=== PATIENT | female | born 1955 | race Caucasian/White ===

== ENCOUNTER 2023-10-03 11:29 | Outpatient (AMB) | payer MEDICARE, SELFPAY ==
--- NOTE | 2023-10-03 12:04 | AM.OFFWIN_ITS ---
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 Rates pain a 7. 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 Patient is complaining of low back me that got worse over the last week. She has history of low back pain, MRIs showing a slipped disc. Symptoms had improved with physical therapy. Without any particular aggravation, the pain symptoms worsened. No urinary incontinence. Able to function and do activities of daily living. PFSH Social History Patient Tobacco Use Status: Never used Tobacco Physical Exam Vital Signs: Last Vital Signs Temp 98.6 F 10/03/23 12:08 Pulse 72 10/03/23 12:08 BP 122/80 10/03/23 12:08 Pulse Ox 99 10/03/23 12:08 Oxygen Delivery Method Room Air 10/03/23 12:08 BMI result Body Mass Index 0.3 Back/Spine/Pelvis Other: Spine: No spinal tenderness. Extrem Other: Right hip: Full range of motion. Full range of motion at the right knee. Assessment & Plan Assessment & Plan (1) Low back pain: Code(s): M54.50 - Low back pain, unspecified Plan: Meloxicam and cyclobenzaprine called in. . Patient was advised rest. Note for work if necessary provided. Once pain symptoms subside, patient should start physical therapy. If symptoms worsen to follow-up here. If patient needs testing, she was advised to follow-up with her primary care provider. Coding Level of Care Code Est Pt Level 4 (18306) Diagnoses Low back pain M54.50
[2023-10-03 12:08] VITALS: BP 122/80; PULSE 72; TEMP 37; O2SAT 99
== END 2023-10-03 13:15 | disposition home or self-care (01) ==
PROVIDERS: PCP Internal Medicine; Visit Provider Internal Medicine
DX: M54.50 Low back pain, unspecified (principal)
CPT/HCPCS: 99214

== ENCOUNTER 2023-10-17 07:59 | Outpatient (AMB) | payer MEDICARE, SELFPAY ==
[2023-10-17 08:03] VITALS: BP 110/70; PULSE 67; O2SAT 99; BMI 28.3
--- NOTE | 2023-10-17 08:03 | A.OFFPC_ITS ---
Vital Signs 10/17/23 08:03 Height 5 ft 4 in Weight 165 lb BMI 28.3 BP 110/70 Blood Pressure Location Rt brachial Position Sitting Pulse 67 Pulse Source Pulse Oximeter Pulse Oximetry (%) 99 Oxygen Delivery Method Room Air Intake Visit Reasons: est care/ sciatic nerve pain Intake Note: Pt is here today as a New Patient c/o Rt leg sciatic nerve pain Allergies No Known Allergies Allergy (Verified 10/17/23 08:24) Medication List - Last Reconciled 10/17/23 by KELSI Ventura alendronate 70 mg PO QWEEK fluticasone propionate 50 mcg/actuation sprays intranasal gabapentin 300 mg PO DAILY levothyroxine 75 mcg PO DAILY rosuvastatin 5 mg PO DAILY zolpidem 5 mg PO BEDTIME Tobacco use date assessed: 10/17/23 Fall risk assessment: No Falls in past year Last assessed Fall Risk: 10/17/23 Dental Screening Dental Screen Date: 10/17/23 Did you have a dental visit in the last 12 months?: Yes Did you have a dental problem in the last 6 months where you did not have access to dental care?: No Was dental information given to patient?: Patient has dentist HPI HPI Comments History of Present Illness Details Patient is a 60-year-old female here to establish care. She has a past medical history significant for hyperlipidemia, hypothyroidism, osteoporosis. She is up-to-date on her immunizations, except for the shingles immunization. She will be sending us her medical record information from her previous provider . Per patient her last colonoscopy was 3 years ago. Patient is a chief complaint of lower back pain that radiates down her legs bilaterally, though mostly on the right. Patient states that sometimes she feels the pain in her gluteus maki, sometime she feels the pain in her thigh, other times patient states the pain radiates down her calf into her foot. She was prescribed gabapentin by a different provider 2 days prior to this appointment, patient states she thinks the medication might be helping a little bit . She denies any trauma to the area. Denies any recent falls. Denies shortness of breath, chest pain, dizziness, nausea or vomiting. Denies saddle numbness. [facility] Medical History (Updated 10/17/23 @ 14:24 by KELSI Ventura) Hypothyroid Hyperlipidemia Surgical History (Updated 10/17/23 @ 08:32 by KELSI Ventura) S/P rotator cuff repair Hx of tonsillectomy Family History (Updated 10/17/23 @ 08:32 by KELSI Ventura) Sister Mental health disorder Maternal Grandmother Mental health disorder Paternal Grandfather Lung cancer Social History (Updated 10/17/23 @ 08:32 by KELSI Ventura) Housing: House Alcohol intake: current Comment: 3-4 per week Patient Tobacco Use Status: Never used Tobacco e-Cigarette/Vaping Use: Never Used Current occupational status: retired Cognitive needs: No Hearing needs: No Vision needs: Yes Questionnaire PHQ-9 Over the last 2 weeks, how often have you been bothered by any of the following problems? 1. Little interest or pleasure in doing things: not at all 2. Feeling down, depressed, or hopeless: not at all 3. Trouble falling or staying asleep, or sleeping too much: several days 4. Feeling tired or having little energy: several days 5. Poor appetite or overeating: not at all 6. Feeling bad about yourself - or that you are a failure or have let yourself or your family down: not at all 7. Trouble concentrating on things, such as reading the newspaper or watching television: not at all 8. Moving or speaking so slowly that other people could have noticed. Or the opposite - being so fidgety or restless that you have been moving around a lot more than usual: not at all 9. Thoughts that you would be better off or of hurting yourself in some way: not at all Total score: 2 Depression Screening Interpretation: Negative Depression Screening Done: Yes 48548 - PHQ-9 Billing: Yes Source: Developed by Drs. Twan Martinez, Maeve Carrington, Foster Thomas and colleagues, with an educational kieran from [employer]. Thrive Questionnaire Date Thrive assessed: 10/17/23 I am a: Patient What is your living situation today?: I have a steady place to live Within the past 12 months, did the food you bought not last and you didn't have the money to get more?: Never true Within the past 12 months, did you worry whether your food would run out before you got money to buy more?: Never true Do you have trouble paying for medicines?: No Do you have trouble getting transportation to medical appointments?: No Do you have trouble paying your heating and electricity bill?: No Do you have trouble taking care of your child, family member or friend?: No Do you have trouble with day-to-day activities such as bathing, preparing meals, shopping, managing finances, etc.?: No Are you currently unemployed and looking for a job?: No Are you interested in more education?: No Please select the resources that you would like help with: None Currently or been in a relationship where the following occur: no concerns reported THRIVE Score: 0 AUDIT C Alcohol Use Questionnaire (AUDIT-C) 1. How often do you have a drink containing alcohol?: Monthly or less 2. How many drinks containing alcohol do you have on a typical day when you are drinking?: 1 or 2 3. How often do you have six or more drinks on one occasion?: Never Total Score: 1 KAYLYNN-7 AMB Questionnaire KAYLYNN-7 Date KAYLYNN - 7 assessed: 10/17/23 Feeling nervous, anxious, or on edge: 0 = Not at all Not being able to stop or control worryin = Not at all Worrying too much about different things: 0 = Not at all Trouble relaxin = Not at all Being so restless that it is hard to sit still: 0 = Not at all Becoming easily annoyed or irritable: 0 = Not at all Feeling afraid as if something awful might happen: 0 = Not at all Total KAYLYNN-7 score (0-4 normal; 5-9 mild; 10-14 moderate; 15-21 severe): 0 Source: Developed by Drs. Twan Martinez, Maeve Carrington, Foster Thomas and colleagues, with an educational kieran from [employer]. KAYLYNN-7 Assessment Billing KAYLYNN-7 Assessment Tool: KAYLYNN-7 Assessment 91122 Review of Systems Const Details: Constitutional : No Weight loss, No Fever, No Chills, No Fatigue, No Malaise ENT/Mouth : No sore throat, No Rhinorrhea Eyes: No Eye Pain, No Swelling, No Redness. No change of vision. Cardiovascular : No Chest Pain, No SOB, No Dyspnea on Exertion, No Orthopnea, No Edema, No Palpitations Respiratory : No Cough, No Sputum, No Wheezing Gastrointestinal : No Nausea, No Vomiting, No Diarrhea, No Constipation, No abdominal Pain, No Hematochezia, No Melena Genitourinary : No Dysuria, No Urinary Frequency, No Hematuria, Musculoskeletal : Admits lower back pain. Skin : No Skin Lesions, No rash Neuro : No Weakness, No Numbness, No Dizziness, No Headache. Admits burning and tingling down right leg. Psych : No Anxiety/Panic, No Depression Heme/Lymph: No Bruising, No Bleeding,No Lymphadenopathy Endocrine : No Polyuria, No Polydipsia All other systems reviewed and are negative Physical exam (Primary Care) Vital Signs: Last Vital Signs Pulse 67 10/17/23 08:03 BP 110/70 10/17/23 08:03 Pulse Ox 99 10/17/23 08:03 Oxygen Delivery Method Room Air 10/17/23 08:03 Care Plan Goal for BP management: Vital signs reviewed stable. BMI result Body Mass Index 28.3 Tobacco/Smoking Status: Tobacco use Status Tobacco use date assessed 10/17/23 10/17/23 08:11 Patient Tobacco Use Status Never used Tobacco 10/17/23 08:32 e-Cigarette/Vaping Use Never Used 10/17/23 08:32 PHQ-9: PHQ-9 Score PHQ-9: Total score 2 10/17/23 09:07 Depression Screening Interpretation: Negative Thrive Assessment: Date of Thrive Assessment Date Thrive assessed 10/17/23 10/17/23 09:07 Currently or been in a relationship where the following occur: no concerns reported Const Other: Appearance: Alert.? Oriented X3.? No acute distress.? Neck: Normal inspection.? Neck supple.? CVS: Normal heart rate and rhythm.? Pulses normal.? Respiratory: No respiratory distress.? Breath sounds normal.? Skin: Skin warm and dry.? Normal skin color.? Normal skin turgor.? Extremities: No lower extremity edema.? No calf ttp. 5/5 strength to bilateral upper and lower extremities Back: No midline tenderness, no C-spine tenderness, full range of motion, no CVA tenderness bilaterally. No obvious deformity. Limited range of motion to flexion. Positive straight leg test on the right side. Neuro: Oriented X 3.? No motor deficit.? No sensory deficit. CN 2-12 intact Assessment and Plan Assessment & Plan (1) Osteoporosis: Comment: Patient is reportedly osteoporotic. She takes a alendronate 70mg Qweek. Code(s): M81.0 - Age-related osteoporosis without current pathological fracture Qualifiers: Osteoporosis type: unspecified Presence of current pathological fracture: unspecified Qualified Code(s): M81.0 - Age-related osteoporosis without current pathological fracture Plan: Patient will send notes on previous bone density scan. (2) Low Back Pain: Comment: Will order x-ray and physical therapy. Will give referral to Pain Center. Patient given the nabumetone to be taken as directed. Code(s): M54.50 - Low back pain, unspecified Qualifiers: Chronicity: acute Back pain laterality: bilateral Sciatica presence: with sciatica Sciatica laterality: sciatica of right side Qualified Code(s): M54.41 - Lumbago with sciatica, right side Plan: Take your medications as prescribed. If you were prescribed antibiotics today, it is important that you take your medication to their entirety, do not skip any doses, do not finish them early. Follow-up with your primary care provider this week. Return to the emergency department with new or worsening symptoms. Such as fevers, chills, chest pain, shortness of breath, nausea, vomiting, dizziness, headache, vision changes, lethargy In case of emergency call 911 Plan Patient will follow-up physical exam in 3 months. Orders: Orders Complete Blood Count Auto Diff Today Z13.0 - Encounter for screening for diseases of the blood and blood-forming organs and certain disorders involving the immune mechanism Lipid Panel Today Z13.220 - Encounter for screening for lipoid disorders Vitamin D 25-OH (D2 and D3) Today Z13.21 - Encounter for screening for nutritional disorder Vitamin B12 Today Z13.21 - Encounter for screening for nutritional disorder UA CC w/rflx Micro + Cult Today E86.0 - Dehydration XR lumbar spine 2-3V Today M54.50 - Low back pain, unspecified Comprehensive Met. Panel Today Z91.89 - Other specified personal risk factors, not elsewhere classified Vitamin B6 Today Z13.21 - Encounter for screening for nutritional disorder TSH reflex Free T4 Today Z13.29 - Encounter for screening for other suspected endocrine disorder Medications: New nabumetone 500 mg PO BID PRN 30 tabs 0RF pain lidocaine 4% (Salonpas (lidocaine)) 1 patch topical DAILY PRN 30 ea 0RF pain Coding Level of Care Code Est Pt Level 3 (19311) Diagnoses Osteoporosis, unspecified osteoporosis type, unspecified pathological fracture presence M81.0 Osteoporosis type: unspecified Presence of current pathological fracture: unspecified Acute bilateral low back pain with right-sided sciatica M54.41 Chronicity: acute Back pain laterality: bilateral Sciatica presence: with sciatica Sciatica laterality: sciatica of right side Additional Codes KAYLYNN-7 Assessment Billing - KAYLYNN-7 Assessment Tool: KAYLYNN-7 Assessment [id number] ([id number]) Time Spent (min) 45
== END 2023-10-17 09:09 | disposition home or self-care (01) ==
PROVIDERS: PCP Internal Medicine; Visit Provider Nurse Practitioner Primary Care
DX: M81.0 Age-related osteoporosis without current pathological fracture (principal); M54.41 Lumbago with sciatica, right side
CPT/HCPCS: 99214

== ENCOUNTER 2023-10-17 09:13 | Outpatient (REF) | payer MEDICARE, SELFPAY ==
--- NOTE | ~2023-10-17 | XR_ITS ---
EXAMINATION: XR LUMBOSACRAL SPINE CLINICAL INFORMATION: Low back pain COMPARISON: None available. TECHNIQUE: Three views of the lumbosacral spine. FINDINGS: The visualized lumbar vertebrae are intact with normal alignment. Intervertebral disc spaces are markedly reduced at L4-L5 and L5-S1 level. Anterior superior L5 sharp syndesmophyte is present. XR/XR lumbar spine 2-3V IMPRESSION: 1. Advanced L4-L5 and L5-S1 degenerative lumbar disc disease. 2. No fracture or dislocation of lumbar spine is seen.
[2023-10-17 11:39] LABS: MANUAL DIFF FLAG NO
[2023-10-17 11:46] LABS: Basophils Percent Auto 0.4 % (0-2); Eosinophils Absolute Auto 0.2 X10*3/uL (0.0-0.4); Eosinophils Percent Auto 3.4 % (0-4); Hematocrit 40.2 % (37.0-47.0); Hemoglobin 13.2 g/dl (12.0-16.0); Imm Gran Abs Auto 0.02 X10*3/uL (0.00-0.03); Imm Gran Pct Auto 0.4 % (0.0-0.4); Lymphocytes Absolute Auto 1.4 X10*3/uL (1.2-4.9); Lymphocytes Percent Auto 25.9 % (20-40); Mean Corpuscular HGB Conc 32.8 g/dl (31.0-35.0); Mean Corpuscular Hemoglobin 29.8 pg (27.0-33.0); Mean Corpuscular Volume 90.7 fL (80.0-98.0); Mean Platelet Volume 11.7 fL (9.4-12.3); Monocytes Absolute Auto 0.4 X10*3/uL (0.1-1.2); Monocytes Percent Auto 6.6 % (2-11); Neutrophils Absolute Auto 3.5 x10*3/uL (2.0-8.3); Neutrophils Percent Auto 63.3 % (45-73); Platelet Count 115 X10*3/uL (160-400); Red Blood Count 4.43 X10*6/uL (4.20-5.50); Red Cell Distribution Width 13.6 % (11.0-16.0); White Blood Count 5.6 X10*3/uL (4.8-10.8)
[2023-10-17 12:37] LABS: Alanine Aminotransferase 21 U/L (0-31); Albumin Level 4.4 g/dL (3.5-5.0); Alkaline Phosphatase 77 U/L (39-117); Anion Gap 12 (12-20); Aspartate Amino Transferase 25 U/L (5-31); Bilirubin Total 0.4 mg/dL (0.0-1.0); Blood Urea Nitrogen 16 mg/dL (9-16); Calcium 9.7 mg/dL (8.4-10.2); Carbon Dioxide 25 mmol/L (22-29); Chloride 107 mmol/L (96-108); Cholesterol 176 mg/dL (<200); Estimated Glomerular Filt Rate 56; Glucose Random 83 mg/dL (60-115); HDL Cholesterol 67 mg/dL (>40); LDL Cholesterol Calculated 100 mg/dL (<100); Potassium 4.3 mmol/L (3.3-5.1); Sodium 140 mmol/L (135-145); Total Protein 7.3 g/dL (6.5-8.0); Triglycerides 48 mg/dL (<150)
[2023-10-17 12:55] LABS: TSH reflex Free T4 2.19 uIU/mL (0.32-4.0)
[2023-10-17 12:56] LABS: Vitamin B12 1073 pg/mL (200-900)
[2023-10-17 13:05] LABS: Appearance Urine Clear; Color Urine Yellow; Glucose Urine UA Negative (Negative); Leukocyte Esterase Urine Negative (Negative); Nitrite Urine Negative (Negative); PH 5.5 (5.0-9.0); Urine Blood Negative (Negative); Urine Ketones Negative (Negative); Urine Protein Negative (Neg-Trace)
[2023-10-21 15:13] LABS: Vitamin D 25-OH, D2 <4 ng/mL; Vitamin D 25-OH, D3 21 ng/mL; Vitamin D 25-OH, Total 21 ng/mL (30-100)
[2023-10-23 04:08] LABS: Vitamin B6 67.4 ng/mL (2.1-21.7)
== END 2023-10-17 09:14 | disposition home or self-care (01) ==
LOC: HO.HMGCX 09:13
PROVIDERS: PCP Nurse Practitioner Primary Care; Visit Provider Nurse Practitioner Primary Care
DX: M54.50 Low back pain, unspecified (principal); E86.0 Dehydration; Z13.21 Encounter for screening for nutritional disorder; Z13.29 Encounter for screening for other suspected endocrine disorder; Z13.0 Encounter for screening for diseases of the blood and blood-forming organs and certain disorders involving the immune mechanism; Z13.220 Encounter for screening for lipoid disorders; Z91.89 Other specified personal risk factors, not elsewhere classified
CPT/HCPCS: 36415; 72100; 80053; 80061; 81003; 82306; 82607; 84207; 84443; 85025

== ENCOUNTER 2023-10-19 14:48 | Outpatient (AMB) | payer MEDICARE, SELFPAY ==
--- NOTE | 2023-10-19 15:03 | MHC.OFFVIS ---
Intake Vital Signs 10/19/23 15:16 Height 5 ft 4 in Weight 165 lb BMI 28.3 BP 130/76 Blood Pressure Location Rt brachial Position Sitting Respiration 16 Pulse 72 Pulse Source Pulse Oximeter Pulse Oximetry (%) 99 Oxygen Delivery Method Room Air Intake Visit Reasons: Low Back Pain, Unspecified Intake Note: Patient comes in for initial visit was referred by [facility] primary care. Reports pain 7.5/10. Allergies No Known Allergies Allergy (Verified 10/19/23 15:16) HPI HPI Comments History of Present Illness Details Jaxon is very pleasant 68 years old female who presents in my office with complains on ?sciatic nerve in the right leg. ?In fact what she was complaining on pain on the lateral surface of the ankle which radiates on the lateral surface of the right lower leg. She also complains on pain in the lower back with radiation to the bilateral hips and thighs but not below the level of the knees. When asked whether she feels pain exacerbated in the lower back when the pain in the ankle and the lower leg most severe she denies. She reports that there are the times when she has severe pain in the ankle and the lower leg but the pain in the lumbar spine is absent. She never observed the reverse situation when the pain in the back is very severe because the pain in the lower extremity is almost constant. She reports the pain level in the ankle today 729 and pain in the lower back 6-8 out of 10. She can not sleep normally because of her pain can not do activities of daily living she can not take care of herself but she can not function normally. She is retired individual. She needs walker or cane for ambulation. She tried multiple medications to alleviate her pain such as NSAIDs , ibuprofen, nabumetone, meloxicam and muscle relaxants they do not help her. She never was prescribed steroid medications. She never received any injections in the past. She also complains in pain in the left groin most likely related to the arthritis in the left hip. In terms of tissue damage she reports her pain is jumping, flushing, shooting, stabbing, lancinating, sharp, hot burning, tingling, dull, heavy, tiring, spreading, radiating. She had physical therapy to help her pain and it was not effective. The MRI was done on her lumbar spine however the results are not available for me. She promised me to bring me the report of the MRI which was done in [facility] of the [facility]. Her past medical history significant for history of heart murmur. Past surgical history significant for of tonsillectomy and shoulder surgery. She denies smoking cigarettes admits social drinking of alcohol drinks caffeinated beverages but denies recreational drugs. [facility] Medical History (Updated 10/19/23 @ 16:04 by Herb Curiel MD) Hypothyroid Hyperlipidemia Surgical History (Updated 10/17/23 @ 08:32 by KELSI Ventura) S/P rotator cuff repair Hx of tonsillectomy Family History (Updated 10/17/23 @ 08:32 by KELSI Ventura) Sister Mental health disorder Maternal Grandmother Mental health disorder Paternal Grandfather Lung cancer Social History (Updated 10/17/23 @ 08:32 by KELSI Ventura) Housing: House Alcohol intake: current Comment: 3-4 per week Patient Tobacco Use Status: Never used Tobacco e-Cigarette/Vaping Use: Never Used Current occupational status: retired Cognitive needs: No Hearing needs: No Vision needs: Yes Review of Systems Const Details: Constitutional : No Weight loss, No Fever, No Chills, No Fatigue, No Malaise ENT/Mouth : No sore throat, No Rhinorrhea Eyes: No Eye Pain, No Swelling, No Redness. No change of vision. Cardiovascular : No Chest Pain, No SOB, No Dyspnea on Exertion, No Orthopnea, No Edema, No Palpitations Respiratory : No Cough, No Sputum, No Wheezing Gastrointestinal : No Nausea, No Vomiting, No Diarrhea, No Constipation, No abdominal Pain, No Hematochezia, No Melena Genitourinary : No Dysuria, No Urinary Frequency, No Hematuria, Musculoskeletal : Admits lower back pain. Skin : No Skin Lesions, No rash Neuro : No Weakness, No Numbness, No Dizziness, No Headache. Admits burning and tingling down right leg. Psych : No Anxiety/Panic, No Depression Heme/Lymph: No Bruising, No Bleeding,No Lymphadenopathy Endocrine : No Polyuria, No Polydipsia All other systems reviewed and are negative ENT Reports Normal hearing present Neuro Reports Normal hearing present, Denies Abnormal speech present, Denies confusion and Denies Sensory deficit (Neuro) Psych Denies confusion Physical Exam Vital Signs: Last Vital Signs Pulse 72 10/19/23 15:16 Resp 16 10/19/23 15:16 BP 130/76 10/19/23 15:16 Pulse Ox 99 10/19/23 15:16 Oxygen Delivery Method Room Air 10/19/23 15:16 BMI result Body Mass Index 28.3 Const General: healthy appearing, no acute distress, in distress (Mild) mild and anxious; No comfortable or confusion Nutritional Appearance: average body habitus Orientation/consciousness: patient oriented x3 and No confusion Eyes General: appearance normal, both eyes and all related structures Pupils: Equal, round and reactive pupils present EOM: EOMs intact bilaterally Neck Neck: Yes full ROM Chest Chest palpation & inspection: normal inspection of the chest Resp Effort & Inspection: normal respiratory effort, able to speak in complete sentences, normal respiratory pattern, no audible wheezes and no cough Cardio Jugular venous distension: no JVD GI Inspection: Yes normal to inspection Back/Spine/Pelvis Other: With support on the cane she was able to stand on bilateral tiptoes and bilateral heels although reported pain in the right ankle with this exercise. Able to flex herself forward and backwards and reports minor discomfort with flexing herself backwards. Coughing and sneezing does not aggravate her pain. No tenderness on palpation in paraspinal spinal regions, no tenderness on palpation in the projection of the sacroiliac joints. Enrico test is negative bilaterally. Performance of Enrico test on the left causes severe discomfort in the groin. Fourteen finger test and Stinchfield tests are negative bilaterally. SLR negative bilaterally. lassegue test is negative bilaterally. Valsalva is negative bilaterally. Denies pelvic organ dysfunction. Neuro General: patient oriented x3, gait normal and No confusion Cranial nerves: Yes CN's II-XII intact bilaterally, Yes Equal, round and reactive pupils present, Yes Normal hearing present and Yes Ability to bilaterally elevate shoulders present Speech: No Abnormal speech present Gait exam (Neuro): Normal gait present Motor exam (neuro): 5/5 motor strength present throughout Sensory Exam: No Sensory deficit (Neuro) Extrem General: No pedal edema Psych Speech and movement: Normal speech and movement present Affect: normal affect Attitude: cooperative Thought process: Normal thought process present Thought content: Normal thought content present Insight: Good insight present (Psych) Judgement: Good judgement present (Psych) Results Reviewed Results Reviewed: X-ray lumbar spine 10/17/2023 Findings: The visualized lumbar vertebra I intact with normal alignment. Intervertebral disc spaces are markedly reduced at L4-5 and L5-S1 level. Anterior superior L5 sharp syndesmophyte is present. Assessment & Plan Assessment & Plan (1) Lumbosacral radiculopathy due to osteoarthritis of spine: Code(s): M47.27 - Other spondylosis with radiculopathy, lumbosacral region (2) Right ankle pain: Code(s): M25.571 - Pain in right ankle and joints of right foot (3) Arthritis of right ankle: Code(s): M19.071 - Primary osteoarthritis, right ankle and foot (4) Arthritis of left hip: Code(s): M16.12 - Unilateral primary osteoarthritis, left hip (5) Spondylosis of lumbar region without myelopathy or radiculopathy: Code(s): M47.816 - Spondylosis without myelopathy or radiculopathy, lumbar region Plan To put at rest idea that her pain is radiculopathic in nature I will refer her to Dr. Hooper for lower extremity EMG. I believe her pain symptoms are coming from multiple arthritic sites including facet joint arthritis , left left hip arthritis and possibly ankle arthritis on the right I requested the patient to bring me the report from the MRI she has at home. If I see any questionable descriptions I might request the patient to bring me the disc to be evaluated. She will schedule an appointment with me after she is done with Dr. Hooper and EMG is available for me. Meanwhile to help her pain I will start her on steroid taper Medrol pack for next 6 days. Opioid program was discussed with the patient. 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 I also recommended her to find a good air hammer operator and have evaluation of the right ankle pain to be done in the office of the air hammer operator with possibility of performing intra-articular injections in the ankle on the right Orders: Orders NE electromyogram (EMG) Today M47.27 - Other spondylosis with radiculopathy, lumbosacral region Medications: New methylprednisolone (Medrol (Nakul)) 1st day 6 pills in a.m., 2nd day 5 pills in a.m., 3rd day 4 pills in a.m., 4th day 3 pills in a.m., 5th day 2 pills in a.m., and 6 day 1 pill in a.m.. 4 mg PO QAM 21 ea 0RF Arthritis 6 days Patient Instructions: I here by testify that I spent 55 minutes in conversation with this patient as well as evaluating her prior records, evaluating her prior diagnostic studies, and organizing this note. Coding Level of Care Code New Pt Level 4 (43908) Diagnoses Lumbosacral radiculopathy due to osteoarthritis of spine M47.27 Right ankle pain M25.571 Arthritis of right ankle M19.071 Arthritis of left hip M16.12 Spondylosis of lumbar region without myelopathy or radiculopathy M47.816
[2023-10-19 15:16] VITALS: BP 130/76; PULSE 72; RESP 16; O2SAT 99; BMI 28.3
== END 2023-10-19 16:28 | disposition home or self-care (01) ==
PROVIDERS: PCP Nurse Practitioner Primary Care; Referring Provider Nurse Practitioner Primary Care; Visit Provider Anesthesiology
DX: M47.27 Other spondylosis with radiculopathy, lumbosacral region (principal); M25.571 Pain in right ankle and joints of right foot; M19.071 Primary osteoarthritis, right ankle and foot; M16.12 Unilateral primary osteoarthritis, left hip; M47.816 Spondylosis without myelopathy or radiculopathy, lumbar region
CPT/HCPCS: 99204

== ENCOUNTER → 2023-10-19 14:48 | Outpatient (BNVA) | payer MEDICARE, SELFPAY | PROVIDERS: PCP Nurse Practitioner Primary Care; Referring Provider Nurse Practitioner Primary Care; Visit Provider Anesthesiology | DX: M47.27 Other spondylosis with radiculopathy, lumbosacral region (principal); M25.571 Pain in right ankle and joints of right foot; M19.071 Primary osteoarthritis, right ankle and foot; M16.12 Unilateral primary osteoarthritis, left hip; M47.816 Spondylosis without myelopathy or radiculopathy, lumbar region | CPT/HCPCS: 99202 ==

== ENCOUNTER 2023-11-16 09:00 | Outpatient (RCR) | payer MEDICARE, SELFPAY ==
--- NOTE | 2023-10-24 08:55 | MHC.PT.EP ---
[facility] [place] Office [place] Office [place] Office [address] Jerzy Velarde [address] [phone] F: [phone] F: [phone] F: [phone] F: [phone] Physical Therapy Plan of Care Date of Evaluation: 10/24/23 Date of Surgery: n/a Diagnosis: Low back pain Assessment: Patient is a 68 year old female presenting to PT with complaints of pain in her low back. Pt reports onset of pain began 09/12/2023 due to insidious onset. She presents today with impairments in pain, lumbar ROM, core strength, hip strength, tenderness to palpation. Pt's current occupation is retired, with baseline physical activities including ambulating, standing, sitting, lifting, caring for grandkids. 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 Clinical presentation today is most consistent with signs and sx associated with low back pain and pt will benefit from skilled PT 2 week x 4 weeks to address the following problems and impairments noted upon evaluation: pain, lumbar ROM, core strength, hip strength, tenderness to palpation. These problems limit the patient with the following functional activities: ambulating, standing, sitting, lifting, caring for grandkids. The prescribed treatment plan of care is medically necessary. Co-morbidities of osteoporosis were identified and taken into considerations of plan of care. Pt was educated on HEP, role of PT, prognosis, POC. Frequency and Duration: The patient will be seen 2 x week x 4 weeks Short Term Goals: Pt will demonstrate centralization of sx in 2 weeks. Pt will demonstrate improved hip MMT strength by 1/3 grade in 2 weeks for improved lumbopelvic stability. Pt will demonstrate ability to perform PPT with good core control in 2 weeks. Mercerizing Range Feeder Goals: Pt will demonstrate improved Milton score by 10% in 4 weeks for improved functional mobility. Pt will demonstrate ability to ambulate community distances without AD in 4 weeks for returned to PLOF. Pt will demonstrate ability to lift household items including grocery bags in 4 weeks for improved independence with voice over announcer. Treatment Plan: Modalities to reduce pain, spasms and effusion. Manual therapy to restore motion and function. Therapeutic exercise to improve strength and flexibility. Neuromuscular re-education for posture and balance. Therapeutic activities to return to functional activities of daily living. Electronically signed by: Denise More, PT, DPT, ATC Please sign and return to therapist. Thank you for your referral.
--- NOTE | 2023-12-22 13:32 | MHC.PT.DC ---
[facility] [place] Office [place] Office [place] Office [address] Jerzy Velarde [address] [phone] F: [phone] F: [phone] F: [phone] F: [phone] Physical Therapy Discharge Report Diagnosis: Low back pain Date of Surgery: n/a Date of Evaluation: 10/24/23 Date of Discharge: 12/22/23 Treatments to Date: 3 Cancellations to Date: 1 No Shows to Date: 0 Discharge Status: Patient Elected to Stop Recommend MD Follow-up Discharge Summary: Pt had been placed on 30 day hold pending EMG study at last visit. She has not reached out in >30 days and therefore to be d/c at this time. Electronically signed by: Denise More, PT, DPT, ATC Please sign and return to therapist. Thank you for your referral.
== END 2023-12-22 13:32 | disposition home or self-care (01) ==
LOC: HO.PTCHIC 09:00
PROVIDERS: PCP Nurse Practitioner Primary Care; Visit Provider Nurse Practitioner Primary Care
DX: M54.50 Low back pain, unspecified (principal)
CPT/HCPCS: 97110; 97140; 97161

== ENCOUNTER 2023-11-17 14:28 | Outpatient (REF) | payer MEDICARE, SELFPAY ==
--- NOTE | 2023-11-17 14:33 | EMG_ITS ---
Chief complaint: Past history of back and pelvis pain 2021, chronic leg weakness left worse than right. Then acute onset right-sided leg pain and paresthesias 09/12/2023. Reason for referral: Evaluate for radiculopathy Referred by: Dr. Curiel Procedure done: Bilateral lower extremity NCS/EMG Precautions and/or limitations: None The limb temperature was monitored continuously and remained between 32-36 degrees C during the performance of the NCS. Nerve Conduction Studies Anti Sensory Summary Table ?Stim Site NR Onset (ms) Norm Onset (ms) Peak (ms) Norm Peak (ms) O-P Amp (?V) Norm O-P Amp Site1 Site2 Delta-0 (ms) Dist (cm) Aniket (m/s) Norm Aniket (m/s) Left Sural Anti Sensory (Lat Mall) Calf ? 2.5 2.9 <4.0 5.4 >5.0 Calf Lat Mall 2.5 14.0 56 Right Sural Anti Sensory (Lat Mall) Calf ? 2.8 3.4 <4.0 7.9 >5.0 Calf Lat Mall 2.8 14.0 50 Motor Summary Table ?Stim Site NR Onset (ms) Norm Onset (ms) O-P Amp (mV) Norm O-P Amp iAmp (mV) Amp (1st) (%) Site1 Site2 Delta-0 (ms) Dist (cm) Aniket (m/s) Norm Aniket (m/s) Left Peroneal Motor (Ext Dig Brev) Ankle ? 4.0 <4.0 5.4 >2.5 6.1 100.0 Ankle Ext Dig Brev 4.0 0.0 B Fib ? 10.7 4.5 5.1 83.3 B Fib Ankle 6.7 33.0 49 >40 Poplt ? 11.4 4.3 4.9 79.6 Poplt B Fib 0.7 3.0 43 >40 Right Peroneal Motor (Ext Dig Brev) Ankle ? 4.2 <4.0 2.5 >2.5 3.0 100.0 Ankle Ext Dig Brev 4.2 0.0 B Fib ? 11.7 1.9 2.2 76.0 B Fib Ankle 7.5 35.0 47 >40 Poplt ? 12.4 1.8 2.2 72.0 Poplt B Fib 0.7 3.0 43 >40 Left Tibial Motor (Abd Perrin Brev) Ankle ? 3.8 <5 8.1 >2.5 11.8 100.0 Ankle Abd Perrin Brev 3.8 0.0 Knee ? 12.9 10.1 12.3 124.7 Knee Ankle 9.1 36.0 40 >40 Right Tibial Motor (Abd Perrin Brev) Ankle ? 4.5 <5 8.3 >2.5 12.8 100.0 Ankle Abd Perrin Brev 4.5 0.0 Knee ? 12.0 5.1 7.9 61.4 Knee Ankle 7.5 40.0 53 >40 EMG ?Side Muscle Nerve Root Ins Act Fibs Psw Amp Dur Poly Recrt Int Pat Comment Right AbdHallucis MedPlantar S1-2 Nml Nml Nml Nml Nml 0 Nml Complete Right AntTibialis Dp Br Peron L4-5 Incr 1+ 1+ Incr Incr 0 Nml Complete Right PostTibialis Tibial L5, S1 Nml Nml Nml Nml Nml 0 Nml Complete Right MedGastroc Tibial S1-2 Nml Nml Nml Nml Nml 0 Nml Complete Right BicepsFemS Sciatic L5-S1 Incr 1+ 1+ Nml Nml 0 Nml Complete Right VastusMed Femoral L2-4 Nml Nml Nml Nml Nml 0 Nml Complete Left AbdHallucis MedPlantar S1-2 Nml Nml Nml Nml Nml 0 Nml Complete Left AntTibialis Dp Br Peron L4-5 Nml Nml Nml Nml Nml 0 Nml Complete Left PostTibialis Tibial L5, S1 Nml Nml Nml Nml Nml 0 Nml Complete Left MedGastroc Tibial S1-2 Nml Nml Nml Nml Nml 0 Nml Complete Left VastusMed Femoral L2-4 Nml Nml Nml Nml Nml 0 Nml Complete Paraspinal EMG ?Side Muscle Nerve Root Ins Act Fibs Psw Comment Right Lumbar Upper Rami Nml Nml Nml Right Lumbar Mid Rami Nml Nml Nml Right Lumbar Lower Rami Nml Nml Nml Left Lumbar Upper Rami Nml Nml Nml Left Lumbar Mid Rami Nml Nml Nml Left Lumbar Lower Rami Nml Nml Nml FINDINGS: Right peroneal motor nerve showed mildly prolonged distal latency, normal amplitude and normal conduction velocity. Amplitudes normal but smaller than left. No conduction block across fibular neck. All other nerves tested were within normal. Concentric needle EMG was performed in selected muscles of the bilateral lower extremity and lumbar paraspinal. Study revealed signs of electric abnormalities as shown in the table below. Right TA showed increased insertional activity, PSWs and fibrillations, and increased amplitude and duration. Right short head of biceps showed increased insertional activity, PSWs and fibrillations. IMPRESSION: 1. This is an abnormal study. 2. There is electrodiagnostic evidence for right L5-S1 radiculopathy, acute on chronic. 3. There is no electrodiagnostic evidence for peroneal neuropathy, tibial neuropathy. lumbosacral plexopathy, or peripheral neuropathy. Thank you for your kind referral. Jeanne Chew MD, MELANIA Board Certified, [place] Board [employer] Physical [employer] and Rehabilitation (ABPMR) Board Certified, [place] Board of Electrodiagnostic Medicine (ABEM) CODIN 16827 x 2 MTDD
== END 2023-11-17 14:29 | disposition home or self-care (01) ==
LOC: HO.NEURO 14:28
PROVIDERS: PCP Nurse Practitioner Primary Care; Visit Provider Anesthesiology
DX: M47.27 Other spondylosis with radiculopathy, lumbosacral region (principal)
CPT/HCPCS: 95886; 95909

== ENCOUNTER → 2023-11-17 14:33 | Outpatient (BNV) | payer MEDICARE, SELFPAY | PROVIDERS: PCP Nurse Practitioner Primary Care; Visit Provider Physical Medicine & Rehabilitation | DX: M54.16 Radiculopathy, lumbar region (principal); M79.605 Pain in left leg; M79.604 Pain in right leg | CPT/HCPCS: 95886; 95909 ==

== ENCOUNTER 2024-01-18 10:55 | Outpatient (AMB) | payer MEDICARE, SELFPAY ==
[2024-01-18 10:57] VITALS: BP 124/72; PULSE 63; O2SAT 98; BMI 27.5
--- NOTE | 2024-01-18 10:57 | A.OFFPC_ITS ---
Vital Signs 01/18/24 10:57 Height 5 ft 4 in Weight 160 lb BMI 27.5 BP 124/72 Blood Pressure Location Lt brachial Position Sitting Pulse 63 Pulse Source Pulse Oximeter Pulse Oximetry (%) 98 Oxygen Delivery Method Room Air Intake Visit Reasons: 3 Month F/U per JL Allergies No Known Allergies Allergy (Verified 01/18/24 11:15) Medication List - Last Reconciled 01/18/24 by KELSI Ventura alendronate 70 mg PO QWEEK cholecalciferol (vitamin D3) 50 mcg PO DAILY fluticasone propionate 50 mcg/actuation sprays intranasal ibuprofen 400 mg PO Q8H levothyroxine 75 mcg PO DAILY lidocaine 4% (Salonpas (lidocaine)) 1 patch topical DAILY PRN rosuvastatin 5 mg PO DAILY zolpidem 5 mg PO BEDTIME Tobacco use date assessed: 01/18/24 Dental Screening Dental Screen Date: 10/17/23 HPI HPI Comments History of Present Illness Details Patient is a 68-year-old female in today for follow-up regarding lower back pain with radiculopathy. Patient was recently referred to pain management, which placed patient on a steroid taper. Patient has utilize conservative measures including NSAIDs, Tylenol, and physical therapy to minimal effect. Recent nerve conduction revealed L5/S1 radiculopathy acute on chronic. Patient states she also had MRI conducted at [facility]. Patient reports today stating that her pain feels much improved. She was placed on steroid taper at pain management which provided immediate relief. Since then patient has been taking ibuprofen p.r.n. with moderate relief. She has been exercising utilizing walking. Patient plans to utilize swimming therapy in the near future. Patient has declined Prevnar 20 immunization. Patient has declined shingles vaccine. Up-to-date on TD. Up-to-date with Gynecology, mammogram, bone density. Mammogram due in July this month. Patient's previous colonoscopy due in 2016, need to obtain results from previous provider. Patient states she did have Cologuard recently but does not know results, need to obtain from previous provider. Insomnia-patient states she is getting about 5-6 hours of sleep per night. Has utilize zolpidem 5 mg in the past with good effect but has since run out of medication. Will refill prescription today. [facility] Medical History (Updated 01/18/24 @ 11:53 by KELSI Ventura) Hypothyroid Hyperlipidemia Surgical History (Updated 10/17/23 @ 08:32 by KELSI Ventura) S/P rotator cuff repair Hx of tonsillectomy Family History (Updated 01/18/24 @ 11:48 by KELSI Ventura) Sister Mental health disorder Maternal Grandmother Mental health disorder Paternal Grandfather Lung cancer Mother Cardiovascular disease Social History (Updated 10/17/23 @ 08:32 by KELSI Ventura) Housing: House Alcohol intake: current Comment: 3-4 per week Patient Tobacco Use Status: Never used Tobacco e-Cigarette/Vaping Use: Never Used service: No Current occupational status: retired Cognitive needs: No Hearing needs: No Vision needs: Yes Questionnaire PHQ-9 Over the last 2 weeks, how often have you been bothered by any of the following problems? Depression Screening Interpretation: Negative Depression Screening Done: Yes 36869 - PHQ-9 Billing: Yes Source: Developed by Drs. Twan Martinez, Foster Anne and colleagues, with an educational kieran from [employer]. Thrive Questionnaire Date Thrive assessed: 10/17/23 KAYLYNN-7 AMB Questionnaire KAYLYNN-7 Date KAYLYNN - 7 assessed: 10/17/23 Source: Developed by Drs. Twan Martinez, Foster Anne and colleagues, with an educational kieran from [employer]. KAYLYNN-7 Assessment Billing KAYLYNN-7 Assessment Tool: KAYLYNN-7 Assessment 79885 Review of Systems Const All systems reviewed & are unremarkable except as noted in HPI and below Physical exam (Primary Care) BMI result Body Mass Index 27.5 Tobacco/Smoking Status: Tobacco use Status Tobacco use date assessed 10/17/23 10/17/23 08:11 Patient Tobacco Use Status Never used Tobacco 10/17/23 08:32 e-Cigarette/Vaping Use Never Used 10/17/23 08:32 Depression Screening Interpretation: Negative Thrive Assessment: Date of Thrive Assessment Date Thrive assessed 10/17/23 10/17/23 09:07 Const General: cooperative and no acute distress Orientation/consciousness: patient oriented x3 Limitations: no limitations HENMT Head: Yes normal to inspection and Yes normocephalic Neck Neck: Yes normal visual inspection Resp Effort & Inspection: normal respiratory effort Auscultation: clear to auscultation bilaterally Cardio Rate: regular rate Rhythm: regular rhythm Heart sounds: S1 normal heart sound present and S2 normal heart sound present Back/Spine/Pelvis Thoracic/Lumbar Spine: thoracic and lumbar spine normal to inspection Neuro General: patient oriented x3 Cognition (Neuro): normal cognition Gait exam (Neuro): Normal gait present Extrem General: Yes normal to inspection Psych Thought content: Normal thought content present Insight: Good insight present (Psych) Judgement: Good judgement present (Psych) Assessment and Plan Assessment & Plan (1) Insomnia: Comment: Will restart patient on Zolpidem PRN. Patient has been educated on the side effects of the medication. Has taken medication previously with good effect. Code(s): G47.00 - Insomnia, unspecified Qualifiers: Insomnia type: primary Qualified Code(s): F51.01 - Primary insomnia (2) Vitamin D deficiency: Comment: Patient taking Vitamin D supplements. Will redraw levels today. Code(s): E55.9 - Vitamin D deficiency, unspecified (3) Radiculopathy due to lumbar intervertebral disc disorder: Comment: Has resolved. Patient has been educated to exercise as tolerated. Code(s): M51.16 - Intervertebral disc disorders with radiculopathy, lumbar region Plan: Take your medications as prescribed. If you were prescribed antibiotics today, it is important that you take your medication to their entirety, do not skip any doses, do not finish them early. Return to the emergency department with new or worsening symptoms. Such as fevers, chills, chest pain, shortness of breath, nausea, vomiting, dizziness, headache, vision changes, lethargy In case of emergency call 911 Orders: Orders MM tomosynthesis screening BI 5 Months Z12.31 - Encounter for screening mammogram for malignant neoplasm of breast Comprehensive Met. Panel Today Z91.89 - Other specified personal risk factors, not elsewhere classified Complete Blood Count Auto Diff Today Z13.0 - Encounter for screening for diseases of the blood and blood-forming organs and certain disorders involving the immune mechanism Vitamin D 25-OH (D2 and D3) Today Z13.21 - Encounter for screening for nutritional disorder Medications: Changed From zolpidem 5 mg PO BEDTIME To zolpidem 5 mg PO BEDTIME PRN 30 tabs 0RF insomnia Review Patient declined Pneumococcal Vaccine: 01/18/24 Coding Level of Care Code Est Pt Level 4 (55602) Diagnoses Primary insomnia F51.01 Insomnia type: primary Vitamin D deficiency E55.9 Radiculopathy due to lumbar intervertebral disc disorder M51.16 Additional Codes KAYLYNN-7 Assessment Billing - KAYLYNN-7 Assessment Tool: KAYLYNN-7 Assessment 11895 ([id number]) Time Spent (min) 35
== END 2024-01-18 11:38 | disposition home or self-care (01) ==
PROVIDERS: PCP Internal Medicine; Visit Provider Nurse Practitioner Primary Care
DX: F51.01 Primary insomnia (principal); E55.9 Vitamin D deficiency, unspecified; M51.16 Intervertebral disc disorders with radiculopathy, lumbar region
CPT/HCPCS: 99214

== ENCOUNTER 2024-01-18 11:37 | Outpatient (REF) | payer MEDICARE, SELFPAY ==
[2024-01-18 13:15] LABS: MANUAL DIFF FLAG NO
[2024-01-18 13:36] LABS: Basophils Percent Auto 0.5 % (0-2); Eosinophils Absolute Auto 0.7 X10*3/uL (0.0-0.4); Eosinophils Percent Auto 10.6 % (0-4); Hematocrit 39.4 % (37.0-47.0); Hemoglobin 12.8 g/dl (12.0-16.0); Imm Gran Abs Auto 0.01 X10*3/uL (0.00-0.03); Imm Gran Pct Auto 0.2 % (0.0-0.4); Lymphocytes Absolute Auto 1.3 X10*3/uL (1.2-4.9); Lymphocytes Percent Auto 20.4 % (20-40); Mean Corpuscular HGB Conc 32.5 g/dl (31.0-35.0); Mean Corpuscular Hemoglobin 30.1 pg (27.0-33.0); Mean Corpuscular Volume 92.7 fL (80.0-98.0); Monocytes Absolute Auto 0.4 X10*3/uL (0.1-1.2); Monocytes Percent Auto 7.1 % (2-11); Neutrophils Absolute Auto 3.8 x10*3/uL (2.0-8.3); Neutrophils Percent Auto 61.2 % (45-73); Platelet Count 111 X10*3/uL (160-400); Red Blood Count 4.25 X10*6/uL (4.20-5.50); Red Cell Distribution Width 13.5 % (11.0-16.0); White Blood Count 6.2 X10*3/uL (4.8-10.8)
[2024-01-18 14:05] LABS: Alanine Aminotransferase 15 U/L (0-31); Albumin Level 4.3 g/dL (3.5-5.0); Alkaline Phosphatase 65 U/L (39-117); Anion Gap 12 (12-20); Aspartate Amino Transferase 22 U/L (5-31); Bilirubin Total 0.4 mg/dL (0.0-1.0); Blood Urea Nitrogen 16 mg/dL (9-16); Calcium 9.9 mg/dL (8.4-10.2); Carbon Dioxide 24 mmol/L (22-29); Chloride 109 mmol/L (96-108); Estimated Glomerular Filt Rate > 60; Glucose Random 97 mg/dL (60-115); Potassium 4.2 mmol/L (3.3-5.1); Sodium 141 mmol/L (135-145); Total Protein 7.2 g/dL (6.5-8.0)
[2024-01-22 17:02] LABS: Vitamin D 25-OH, D2 <4 ng/mL; Vitamin D 25-OH, D3 34 ng/mL; Vitamin D 25-OH, Total 34 ng/mL (30-100)
== END 2024-01-18 11:38 | disposition home or self-care (01) ==
LOC: HO.HMGCLDS 11:37
PROVIDERS: PCP Nurse Practitioner Primary Care; Visit Provider Nurse Practitioner Primary Care
DX: Z13.0 Encounter for screening for diseases of the blood and blood-forming organs and certain disorders involving the immune mechanism (principal); Z13.21 Encounter for screening for nutritional disorder; Z91.89 Other specified personal risk factors, not elsewhere classified
CPT/HCPCS: 36415; 80053; 82306; 85025

== ENCOUNTER 2024-03-06 08:55 | Outpatient (AMB) | payer MEDICARE, SELFPAY ==
--- NOTE | 2024-03-06 08:56 | MHC.PC.OV ---
Vital Signs 03/06/24 08:57 Height 5 ft 4 in Weight 158 lb BMI 27.1 BP 148/92 H Blood Pressure Location Lt brachial Position Sitting Pulse 63 Pulse Source Pulse Oximeter Pulse Oximetry (%) 98 Oxygen Delivery Method Room Air Intake Visit Reasons: follow up labs Intake Note: pt is here for a f/u for recent lab results. Allergies No Known Allergies Allergy (Verified 03/06/24 09:16) Medication List - Last Reconciled 03/06/24 by KELSI Ventura alendronate 70 mg PO QWEEK cholecalciferol (vitamin D3) 50 mcg PO DAILY fluticasone propionate 50 mcg/actuation sprays intranasal ibuprofen 400 mg PO Q8H levothyroxine 75 mcg PO DAILY lidocaine 4% (Salonpas (lidocaine)) 1 patch topical DAILY PRN rosuvastatin 5 mg PO DAILY zolpidem 5 mg PO BEDTIME PRN Tobacco use date assessed: 03/06/24 Dental Screening Dental Screen Date: 10/17/23 HPI HPI Comments History of Present Illness Details This is a 60-year-old female in today for a follow-up on insomnia. Patient was having difficulty getting to sleep and states that she was only able to sleep 5-6 hours at previous appointment, she was given 5 mg zolpidem p.r.n. she reports that she utilizes the medication once per week with good effect. Has been trying to improve her sleep hygiene in order to continue to improve her sleep quality. Patient was also found to be hypertensive at today's appointment. She had a negative neuro workup, negative for chest pain, dizziness, headache, numbness. Patient will come back to the office in 2 weeks to have a blood pressure recheck. Will not be started on medication at this time. [facility] Medical History (Updated 03/06/24 @ 10:12 by KELSI Ventura) Hypothyroid Hyperlipidemia Surgical History S/P rotator cuff repair Hx of tonsillectomy Family History Sister Mental health disorder Maternal Grandmother Mental health disorder Paternal Grandfather Lung cancer Mother Cardiovascular disease Social History (Reviewed 03/06/24 @ 10:08 by TU Ventura Housing: House Alcohol intake: current Comment: 3-4 per week Patient Tobacco Use Status: Never used Tobacco e-Cigarette/Vaping Use: Never Used service: No Current occupational status: retired Cognitive needs: No Hearing needs: No Vision needs: Yes Questionnaire Thrive Questionnaire Date Thrive assessed: 10/17/23 KAYLYNN-7 AMB Questionnaire KAYLYNN-7 Date KAYLYNN - 7 assessed: 10/17/23 Source: Developed by Drs. Twan Martinez, Maeve Carrington, Foster Thomas and colleagues, with an educational kieran from [employer]. Review of Systems Const All systems reviewed & are unremarkable except as noted in HPI and below Denies headache(s) Eyes Denies blurry vision ENT Denies dizziness and Denies headache(s) Card Denies chest pain and Denies dyspnea Resp Denies dyspnea GI Denies diarrhea, Denies nausea and Denies vomiting Neuro Denies dizziness and Denies headache(s) Physical exam (Primary Care) Vital Signs: Last Vital Signs Pulse 63 03/06/24 08:57 BP 148/92 H 03/06/24 08:57 Pulse Ox 98 03/06/24 08:57 Oxygen Delivery Method Room Air 03/06/24 08:57 Care Plan Goal for BP management: Patient will come back in 2 weeks for blood pressure recheck BMI result Body Mass Index 27.1 Tobacco/Smoking Status: Tobacco use Status Tobacco use date assessed 03/06/24 03/06/24 08:59 Patient Tobacco Use Status Never used Tobacco 03/06/24 08:59 e-Cigarette/Vaping Use Never Used 03/06/24 08:59 Thrive Assessment: Date of Thrive Assessment Date Thrive assessed 10/17/23 03/06/24 08:59 Advance Care Planning discussion: Completed/Scanned Date of discussion: 03/06/24 Forms completed: Health Care Proxy Time spent: 1-15 minutes, on File Const Other: Appearance: Alert.? Oriented X3.? No acute distress.? Head: Normocephalic, atraumatic, no step-offs or deformities Eyes: Pupils equal, round and reactive to light.?Sclera white. ENT: Pharynx normal.?TM intact and pearly baron. CVS: Normal heart rate and rhythm.? Pulses normal.? Respiratory: No respiratory distress.? Breath sounds normal.? Neuro: Oriented X 3.? No motor deficit.? No sensory deficit. CN 2-12 intact Assessment and Plan Assessment & Plan (1) Insomnia: Comment: She is utilizing zolpidem p.r.n. with good effect. X1 per week. Patient has been educated on the side effects of the medication. Has taken medication previously with good effect. Code(s): G47.00 - Insomnia, unspecified Qualifiers: Insomnia type: primary Qualified Code(s): F51.01 - Primary insomnia (2) Hypertension: Comment: Patient will come back to the office in 2 weeks for blood pressure redraw. Patient has been educated on signs of worsening symptoms when to report to the office when to present to the ED. will not start medication at this time, this is patient's 1st incidence of elevated blood pressure in office. Code(s): I10 - Essential (primary) hypertension Qualifiers: Hypertension type: unspecified Qualified Code(s): I10 - Essential (primary) hypertension (3) Low platelet count: Comment: Will redraw CBC Code(s): D69.6 - Thrombocytopenia, unspecified Orders: Orders Vitamin B12 Today Z13.21 - Encounter for screening for nutritional disorder Vitamin B6 Today Z13.21 - Encounter for screening for nutritional disorder Magnesium Today Z13.21 - Encounter for screening for nutritional disorder Complete Blood Count Auto Diff Today R79.89 - Other specified abnormal findings of blood chemistry Medications: New levothyroxine 75 mcg PO DAILY 90 caps 1RF rosuvastatin 5 mg PO DAILY 90 tabs 1RF Refilled alendronate 70 mg PO QWEEK 13 tabs 0RF Coding Level of Care Code Est Pt Level 3 (46637) Diagnoses Primary insomnia F51.01 Insomnia type: primary Hypertension, unspecified type I10 Hypertension type: unspecified Low platelet count D69.6 Additional Codes Vital Signs *Quality* - Advance Care Planning discussion: Completed/Scanned ([id number]) Vital Signs *Quality* - Time spent: 1-15 minutes, on File ([id number]) Time Spent (min) 27
[2024-03-06 08:57] VITALS: BP 148/92; PULSE 63; O2SAT 98; BMI 27.1
== END 2024-03-06 09:53 | disposition home or self-care (01) ==
PROVIDERS: PCP Nurse Practitioner Primary Care; Visit Provider Nurse Practitioner Primary Care
DX: F51.01 Primary insomnia (principal); I10 Essential (primary) hypertension; D69.6 Thrombocytopenia, unspecified; Z00.00 Encounter for general adult medical examination without abnormal findings
CPT/HCPCS: 1123F; 99213

== ENCOUNTER 2024-07-12 11:11 | Outpatient (REF) | payer MEDICARE, SELFPAY ==
--- NOTE | ~2024-07-12 | MM_ITS ---
EXAMINATION: MM SCREENING DIGITAL BREAST TOMOSYNTHESIS, BILATERAL CLINICAL INFORMATION: Screening. Asymptomatic. COMPARISON: Mammography: Comparison is made with available priors TECHNIQUE: Digital breast mammography with tomosynthesis is performed in both the craniocaudal and mediolateral oblique views along with computer-aided detection (CAD). FINDINGS: There are scattered areas of fibroglandular density (ACR BI-RADS breast composition Category b). There are no significant masses, abnormal calcifications, or other abnormalities. MM/MM tomosynthesis screening BI IMPRESSION: No mammographic evidence of malignancy. ASSESSMENT: BI-RADS BI-RADS 1 - Negative RECOMMENDATION: Routine annual mammography screening. 1 year F/U This examination should not preclude the clinical evaluation of a suspicious palpable abnormality. This patient's information was entered into a reminder system with a target due date for their next mammogram. Electronically signed by: Yue Bhatia DO 07/20/2024 10:16 AM KESHIA
== END 2024-07-12 11:12 | disposition home or self-care (01) ==
LOC: HO.MAMMO 11:11
PROVIDERS: PCP Internal Medicine; Visit Provider Internal Medicine
DX: Z12.31 Encounter for screening mammogram for malignant neoplasm of breast (principal)
CPT/HCPCS: 77063; 77067

== ENCOUNTER → 2024-07-12 11:15 | Outpatient (BNV) | payer MEDICARE, SELFPAY | PROVIDERS: PCP Internal Medicine; Visit Provider Internal Medicine | DX: Z12.31 Encounter for screening mammogram for malignant neoplasm of breast (principal) | CPT/HCPCS: 77063; 77067 ==

== ENCOUNTER 2024-10-04 08:31 | Outpatient (REF) | payer MEDICARE, SELFPAY ==
[2024-10-04 10:13] LABS: MANUAL DIFF FLAG NO
[2024-10-04 10:25] LABS: Basophils Percent Auto 0.3 % (0-2); Eosinophils Absolute Auto 0.1 X10*3/uL (0.0-0.4); Eosinophils Percent Auto 0.9 % (0-4); Hematocrit 41.5 % (37.0-47.0); Hemoglobin 13.4 g/dl (12.0-16.0); Imm Gran Abs Auto 0.01 X10*3/uL (0.00-0.03); Imm Gran Pct Auto 0.1 % (0.0-0.4); Lymphocytes Absolute Auto 0.9 X10*3/uL (1.2-4.9); Lymphocytes Percent Auto 13.1 % (20-40); Mean Corpuscular HGB Conc 32.3 g/dl (31.0-35.0); Mean Corpuscular Hemoglobin 30.1 pg (27.0-33.0); Mean Corpuscular Volume 93.3 fL (80.0-98.0); Mean Platelet Volume 12.2 fL (9.4-12.3); Monocytes Absolute Auto 0.5 X10*3/uL (0.1-1.2); Neutrophils Absolute Auto 5.2 x10*3/uL (2.0-8.3); Neutrophils Percent Auto 77.6 % (45-73); Platelet Count 105 X10*3/uL (160-400); Red Blood Count 4.45 X10*6/uL (4.20-5.50); Red Cell Distribution Width 13.8 % (11.0-16.0); White Blood Count 6.7 X10*3/uL (4.8-10.8)
[2024-10-04 10:40] LABS: Alanine Aminotransferase 21 U/L (0-31); Albumin Level 4.2 g/dL (3.5-5.0); Alkaline Phosphatase 63 U/L (39-117); Anion Gap 11 (12-20); Aspartate Amino Transferase 31 U/L (5-31); Bilirubin Total 0.6 mg/dL (0.0-1.0); Blood Urea Nitrogen 14 mg/dL (9-16); Calcium 9.4 mg/dL (8.4-10.2); Carbon Dioxide 24 mmol/L (22-29); Chloride 113 mmol/L (96-108); Cholesterol 152 mg/dL (<200); Estimated Glomerular Filt Rate > 60; Glucose Fasting 91 mg/dL (60-99); HDL Cholesterol 67 mg/dL (>40); LDL Cholesterol Calculated 77 mg/dL (<100); Potassium 4.8 mmol/L (3.3-5.1); Sodium 143 mmol/L (135-145); Total Protein 7.6 g/dL (6.5-8.0); Triglycerides 43 mg/dL (<150)
[2024-10-04 11:02] LABS: Free T4 (Free Thyroxine) 1.14 ng/dL (0.71-1.85); Thyroid Stimulating Hormone 0.49 uIU/mL (0.32-4.0)
[2024-10-04 11:06] LABS: Folate 9.7 ng/mL (> or = 4.0); Vitamin B12 473 pg/mL (200-900)
[2024-10-10 06:09] LABS: Vitamin B6 9.9 ng/mL (2.1-21.7)
== END 2024-10-04 08:32 | disposition home or self-care (01) ==
LOC: HO.HMGCLDS 08:31
PROVIDERS: PCP Internal Medicine; Visit Provider Internal Medicine
DX: I10 Essential (primary) hypertension (principal); Z86.2 Personal history of diseases of the blood and blood-forming organs and certain disorders involving the immune mechanism; M81.0 Age-related osteoporosis without current pathological fracture; E78.5 Hyperlipidemia, unspecified; E67.2 Megavitamin-B6 syndrome; R79.89 Other specified abnormal findings of blood chemistry
CPT/HCPCS: 36415; 80053; 80061; 82306; 82607; 82746; 84207; 84439; 84443; 85025

== ENCOUNTER 2024-10-10 11:57 | Outpatient (AMB) | payer MEDICARE, SELFPAY ==
[2024-10-10 12:33] VITALS: BP 124/80; PULSE 76; RESP 16; TEMP 36.4; O2SAT 97; BMI 24.9
--- NOTE | 2024-10-10 12:33 | MHC.PC.OV ---
Vital Signs 10/10/24 12:33 Height 5 ft 4 in Weight 145 lb BMI 24.9 BP 124/80 Blood Pressure Location Lt brachial Position Sitting Respiration 16 Pulse 76 Pulse Source Pulse Oximeter Temp 97.6 F Temp Source Oral Pulse Oximetry (%) 97 Oxygen Delivery Method Room Air Intake Visit Reasons: Transfer care, follow-up lipids Intake Note: Pt is here today as a transfer from [facility]/c/o neck spasm Allergies No Known Allergies Allergy (Verified 10/10/24 13:16) Medication List - Last Reconciled 10/10/24 by Leann Martin MD alendronate 70 mg PO QWEEK cholecalciferol (vitamin D3) 50 mcg PO DAILY fluticasone propionate 50 mcg/actuation sprays intranasal levothyroxine 75 mcg PO DAILY rosuvastatin 5 mg PO DAILY zolpidem 5 mg PO BEDTIME PRN Tobacco use date assessed: 10/10/24 Fall risk assessment: No Falls in past year Last assessed Fall Risk: 10/10/24 Dental Screening Dental Screen Date: 10/10/24 Did you have a dental visit in the last 12 months?: Yes Did you have a dental problem in the last 6 months where you did not have access to dental care?: No Was dental information given to patient?: Patient has dentist HPI Transfer care, follow-up lipids HPI Details 69-year-old lady with history of osteopenia in left femoral neck, currently on alendronate, started approximately 2022 by her OBGYN, Zuri Lawson; has dyslipidemia currently on rosuvastatin 5 mg taken once a day, hypothyroidism currently on 75 mcg daily and intermittent episodes of insomnia currently taking zolpidem only as needed 5 mg per tab, here today for follow-up on her lipids and thyroid and to establish care with a new PCP [facility] Medical History Dyslipidemia Hx of idiopathic thrombocytopenic purpura Hypothyroid Hyperlipidemia Surgical History S/P rotator cuff repair Hx of tonsillectomy Family History Sister Mental health disorder Maternal Grandmother Mental health disorder Paternal Grandfather Lung cancer Mother Cardiovascular disease Social History Housing: House Alcohol intake: current Comment: 3-4 per week Patient Tobacco Use Status: Never used Tobacco e-Cigarette/Vaping Use: Never Used service: No Current occupational status: retired Cognitive needs: No Hearing needs: No Vision needs: Yes Questionnaire PHQ-9 Over the last 2 weeks, how often have you been bothered by any of the following problems? 1. Little interest or pleasure in doing things: not at all 2. Feeling down, depressed, or hopeless: not at all 3. Trouble falling or staying asleep, or sleeping too much: more than half the days 4. Feeling tired or having little energy: several days 5. Poor appetite or overeating: not at all 6. Feeling bad about yourself - or that you are a failure or have let yourself or your family down: not at all 7. Trouble concentrating on things, such as reading the newspaper or watching television: not at all 8. Moving or speaking so slowly that other people could have noticed. Or the opposite - being so fidgety or restless that you have been moving around a lot more than usual: not at all 9. Thoughts that you would be better off or of hurting yourself in some way: not at all Total score: 3 Depression Screening Interpretation: Negative Depression Screening Done: Yes 95867 - PHQ-9 Billing: Yes Source: Developed by Drs. Twan Martinez, Maeve Carrington, Foster Thomas and colleagues, with an educational kieran from [employer]. Thrive Questionnaire Date Thrive assessed: 10/04/24 I am a: Patient What is your living situation today?: I have a steady place to live Within the past 12 months, did the food you bought not last and you didn't have the money to get more?: Never true Within the past 12 months, did you worry whether your food would run out before you got money to buy more?: Never true Do you have trouble paying for medicines?: No Do you have trouble getting transportation to medical appointments?: No Do you have trouble paying your heating and electricity bill?: No Do you have trouble taking care of your child, family member or friend?: No Do you have trouble with day-to-day activities such as bathing, preparing meals, shopping, managing finances, etc.?: No Are you currently unemployed and looking for a job?: Yes Are you interested in more education?: No Please select the resources that you would like help with: None Currently or been in a relationship where the following occur: No concerns reported THRIVE Score: 0 AUDIT C Alcohol Use Questionnaire (AUDIT-C) 1. How often do you have a drink containing alcohol?: 2-4 times a month 2. How many drinks containing alcohol do you have on a typical day when you are drinking?: 1 or 2 3. How often do you have six or more drinks on one occasion?: Never Total Score: 2 KAYLYNN-7 AMB Questionnaire KAYLYNN-7 Date KAYLYNN - 7 assessed: 10/10/24 Feeling nervous, anxious, or on edge: 0 = Not at all Not being able to stop or control worryin = Several days Worrying too much about different things: 1 = Several days Trouble relaxin = Several days Being so restless that it is hard to sit still: 0 = Not at all Becoming easily annoyed or irritable: 0 = Not at all Feeling afraid as if something awful might happen: 0 = Not at all Total KAYLYNN-7 score (0-4 normal; 5-9 mild; 10-14 moderate; 15-21 severe): 3 Source: Developed by Drs. Twan Martinez, Maeve Carrington, Foster Thomas and colleagues, with an educational kieran from [employer]. KAYLYNN-7 Assessment Billing KAYLYNN-7 Assessment Tool: KAYLYNN-7 Assessment 21988 Physical exam (Primary Care) Vital Signs: Last Vital Signs Temp 97.6 F 10/10/24 12:33 Pulse 76 10/10/24 12:33 Resp 16 10/10/24 12:33 BP 124/80 10/10/24 12:33 Pulse Ox 97 10/10/24 12:33 Oxygen Delivery Method Room Air 10/10/24 12:33 BMI result Body Mass Index 24.9 Tobacco/Smoking Status: Tobacco use Status Tobacco use date assessed 10/10/24 10/10/24 12:40 Patient Tobacco Use Status Never used Tobacco 10/10/24 12:34 e-Cigarette/Vaping Use Never Used 10/10/24 12:34 PHQ-9: PHQ-9 Score PHQ-9: Total score 3 10/10/24 12:40 Depression Screening Interpretation: Negative Thrive Assessment: Date of Thrive Assessment Date Thrive assessed 10/04/24 10/10/24 12:34 Currently or been in a relationship where the following occur: No concerns reported Immunizations pneumoc 20-tayo conj-dip cr(PF) 0.5 mL IM syringe Performing Provider: Leann Martin MD Performing Location: [facility] Administered by: Alfreda Morgan CMA on 10/10/24 13:19 Dose Route Admin Location Dispensed Lot Number Expiration Date [facility] Document Design Specialist 0.5 mL IM Right Deltoid 0.5 mL [id number] 10/12/25 [employer] VIS Given Date VIS Provided VIS Publication Date 10/10/24 Single Vaccine 21 Eligibility Eligibility Date Funding Source Not [facility] Eligible 10/10/24 Private Results Reviewed Results Reviewed: Name: SilvestreDodie D Age/Sex: 68/F : 1955 Unit#: [id number] Attend Dr: Leann Martin MD Re10/04/24 Status: DEP REF Location: [facility] Disch: SPEC : [id number] ANA ROSA: 10/04/24 STATUS: COMP REQ : [id number] RECD: 10/04/[address]: Leann Martin MD COMP: 10/04/24 ENTERED: 10/04/[address]: ORDERED: CBC Auto Diff Test Result Flag Reference WBC 6.7 4.8-10.8 X10*3/uL RBC 4.45 4.20-5.50 X10*6/uL HGB 13.4 12.0-16.0 g/dl HCT 41.5 37.0-47.0 % MCV 93.3 80.0-98.0 fL MCH 30.1 27.0-33.0 pg MCHC 32.3 31.0-35.0 g/dl RDW 13.8 11.0-16.0 % PLT 105 L 160-400 X10*3/uL MPV 12.2 9.4-12.3 fL Neut Pct Auto 77.6 H 45-73 % ImGran Pct Auto 0.1 0.0-0.4 % Lymp Pct Auto 13.1 L 20-40 % [place] Pct Auto 8.0 2-11 % Eos Pct Auto 0.9 0-4 % Baso Pct Auto 0.3 0-2 % NRBC Pct Auto 0.0 0.0-0.2 /100WBC ANC Neut Abs # 5.2 2.0-8.3 x10*3/uL ImGran Abs Auto 0.01 0.00-0.03 X10*3/uL Lymph Abs Auto 0.9 L 1.2-4.9 X10*3/uL [place] Abs Auto 0.5 0.1-1.2 X10*3/uL Eos Abs Auto 0.1 0.0-0.4 X10*3/uL Baso Abs Auto 0.0 0.0-0.2 X10*3/uL NRBC Abs Auto 0.000 0.0-0.012 X10*3/uL Name: Dodie Rivers Age/Sex: 68/F : 1955 Unit#: [id number] Attend Dr: Leann Martin MD Re10/04/24 Status: DEP REF Location: [facility] Disch: SPEC : [id number] ANA ROSA: 10/04/24 STATUS: COMP REQ : [id number] RECD: 10/04/[address]: Leann Martin MD COMP: 10/04/24 ENTERED: 10/04/[address] [facility] [address]: ORDERED: CMP Fast, Lipid Panel, Vitamin D 25-OH, Free T4, TSH Test Result Flag Reference Sodium 143 135-145 mmol/L Potassium 4.8 3.3-5.1 mmol/L Slight Hemolysis.Interpret result with caution. CL 113 H 96-108 mmol/L CO2 24 22-29 mmol/L Gap 11 L 12-20 BUN 14 9-16 mg/dL Creat 0.78 0.5-1.4 mg/dL eGFR > 60 Chronic Kidney Disease: Estimated GFR < 60 mL/min/1.73m2 Severe Kidney Disease: Estimated GFR < 15 mL/min/1.73m2 FBS 91 60-99 mg/dL CA 9.4 8.4-10.2 mg/dL Total Bili 0.6 0.0-1.0 mg/dL AST (GOT) 31 5-31 U/L Slight Hemolysis.Interpret result with caution. ALT (GPT) 21 0-31 U/L Protein, Total 7.6 6.5-8.0 g/dL Alb 4.2 3.5-5.0 g/dL Triglyceride 43 <150 mg/dL Desirable Triglyceride: less than 150 mg/dL Borderline High Triglyceride 150-199 mg/dL High Triglyceride: 200-499 mg/dL Very High Triglyceride: greater than or equal to 5OO mg/dL Cholesterol 152 <200 mg/dL Desirable Cholesterol: less than 200 mg/dL Borderline High Cholesterol: 200-239 mg/dL High Cholesterol: greater than 239 mg/dL LDL Calculated 77 <100 mg/dL Desirable LDL: less than 100 mg/dL Near Optimal/Above Optimal LDL: 110-129 mg/dL Borderline High LDL: 130-159 mg/dL High LDL: 160-189 mg/dL Very High LDL: greater than or equal to 190 mg/dL HDL 67 >40 mg/dL Desirable HDL: greater than 40 mg/dL Note: This HDL assay may give artificially low results in patients with liver disease. Alk Phos 63 39-117 U/L Vit D 25-OH Tot 37.0 >30 ng/mL Health Based Reference Values* < 20 ng/mL Deficient 20-30 ng/mL Insufficient > 30 ng/mL Sufficient *Elton WILLAMS. N Engl J Med. 2007;357:266-280 Care must be taken in interpreting Vitamin D results from different laboratories and methodologies. Published data demonstrated that results from patients undergoing hemodialysis may show a negative bias when tested with various automated 25-OH vitamin D assays when compared to LC-MS/MS. When testing samples from patients whose predominant form of Vitamin D is Vitamin D2, such as patients receiving Vitamin D2 supplementation, results that are subtherapeutic should be confirmed with another method such as LC-MS/MS. Free T4 1.14 0.71-1.85 ng/dL TSH 3rd Gen. 0.49 0.32-4.0 uIU/mL Coding Level of Care Code Est Pt Level 4 (68698) Complex EM visit Add On G2211 Diagnoses Osteoporosis, unspecified osteoporosis type, unspecified pathological fracture presence M81.0 Osteoporosis type: unspecified Presence of current pathological fracture: unspecified Hypothyroid E03.9 Dyslipidemia E78.5 Primary insomnia F51.01 Insomnia type: primary Additional Codes KAYLYNN-7 Assessment Billing - KAYLYNN-7 Assessment Tool: KAYLYNN-7 Assessment 36517 ([id number]) PHQ-9 - 90148 - PHQ-9 Billing: Yes ([id number]) Assessment & Plan Assessment & Plan (1) Osteoporosis: Comment: Patient is reportedly osteoporotic. She takes a alendronate 70mg Qweek. Code(s): M81.0 - Age-related osteoporosis without current pathological fracture Category: Medical Qualifiers: Osteoporosis type: unspecified Presence of current pathological fracture: unspecified Qualified Code(s): M81.0 - Age-related osteoporosis without current pathological fracture (2) Hypothyroid: Code(s): E03.9 - Hypothyroidism, unspecified Category: Medical (3) Dyslipidemia: Code(s): E78.5 - Hyperlipidemia, unspecified Category: Medical (4) Insomnia: Comment: She is utilizing zolpidem p.r.n. with good effect. X1 per week. Patient has been educated on the side effects of the medication. Has taken medication previously with good effect. Code(s): G47.00 - Insomnia, unspecified Category: Medical Qualifiers: Insomnia type: primary Qualified Code(s): F51.01 - Primary insomnia Orders: Orders Pneumococcal 20 Immunization Today Z23 - Encounter for immunization Medications: New pneumoc 20-tayo conj-dip cr(PF) 0.5 mL IM ONCE 0.5 mL 0RF Z23 - Encounter for immunization Changed From rosuvastatin 5 mg PO DAILY 90 tabs 1RF To rosuvastatin 5 mg PO Q2D 3 months 45 tabs 1RF
== END 2024-10-10 13:27 | disposition home or self-care (01) ==
PROVIDERS: PCP Internal Medicine; Visit Provider Internal Medicine
DX: Z23 Encounter for immunization (principal)

== ENCOUNTER → 2024-10-10 11:57 | Outpatient (BNVA) | payer MEDICARE, SELFPAY | PROVIDERS: PCP Internal Medicine; Visit Provider Internal Medicine | DX: M81.0 Age-related osteoporosis without current pathological fracture (principal); E03.9 Hypothyroidism, unspecified; E78.5 Hyperlipidemia, unspecified; F51.01 Primary insomnia; Z23 Encounter for immunization | CPT/HCPCS: 90471; 90677; 96127; 99212 ==

== ENCOUNTER 2024-10-29 08:40 | Outpatient (REF) | payer MEDICARE, SELFPAY ==
--- NOTE | ~2024-10-29 | XR_ITS ---
CLINICAL HISTORY: S46.911A - Strain of unspecified muscle, fascia and tendon at shoulder a... Right shoulder 4 views Comparison: None Findings: No acute fracture or dislocation. Intact glenohumeral and acromioclavicular joints. Small calcifications adjacent to the greater tuberosity compatible with calcific peritendinitis. Remaining soft tissues intact. Right apical pleural-parenchymal scarring. Small right cervical rib. Impression: Calcific peritendinitis right shoulder. This document has been electronically signed by: Kedar Frey MD on 10/29/2024 11:06:23
== END 2024-10-29 08:41 | disposition home or self-care (01) ==
LOC: HO.XRAY 08:40
PROVIDERS: PCP Internal Medicine
DX: S46.911A Strain of unspecified muscle, fascia and tendon at shoulder and upper arm level, right arm, initial encounter (principal)
CPT/HCPCS: 73030; 99212

== ENCOUNTER 2024-10-29 08:40 | Outpatient (AMB) | payer MEDICARE, SELFPAY ==
[2024-10-29 08:51] VITALS: BP 120/80; PULSE 67; O2SAT 97
--- NOTE | 2024-10-29 08:51 | AM.OFFWIN_ITS ---
Intake Vital Signs 10/29/24 08:51 Weight 144 lb BP 120/80 Blood Pressure Location Rt brachial Position Sitting Pulse 67 Pulse Source Pulse Oximeter Pulse Oximetry (%) 97 Oxygen Delivery Method Room Air Intake Visit Reasons: EP Dislocated Intake Note: Patient here for right arm pain after working out on tuesday, limited ROM. Patient Tobacco Use Status: Never used Tobacco Allergies No Known Allergies Allergy (Verified 10/29/24 08:52) Do you need a note to return to daycare/school/sports/work: No HPI HPI Comments History of Present Illness Details 69 y/o female patient who presents to [facility] with c/o right shoulder pain since Tuesday morning. Reports that Tuesday she was doing exercises at home where she thinks she might have dislocated her right shoulder. Denies lifting anything heavy. Denies any direct injury to the shoulder. Reports pain at the Bicep radiating up the shoulder. Limited ROM due to severe pain. [facility] Medical History (Updated 10/29/24 @ 09:22 by Felicitas Ashton NP) Right shoulder strain Dyslipidemia Hx of idiopathic thrombocytopenic purpura Hypothyroid Hyperlipidemia Surgical History S/P rotator cuff repair Hx of tonsillectomy Family History Sister Mental health disorder Maternal Grandmother Mental health disorder Paternal Grandfather Lung cancer Mother Cardiovascular disease Social History Housing: House Alcohol intake: current Comment: 3-4 per week Patient Tobacco Use Status: Never used Tobacco e-Cigarette/Vaping Use: Never Used service: No Current occupational status: retired Cognitive needs: No Hearing needs: No Vision needs: Yes Review of Systems Const All systems reviewed & are unremarkable except as noted in HPI and below Physical Exam Vital Signs: Last Vital Signs Pulse 67 10/29/24 08:51 BP 120/80 10/29/24 08:51 Pulse Ox 97 10/29/24 08:51 Oxygen Delivery Method Room Air 10/29/24 08:51 Const General: no acute distress; No comfortable Orientation/consciousness: patient oriented x3 Neuro General: patient oriented x3, gait normal and moves all extremities Extrem Right upper extremity: shoulder/upper arm Details: normal to inspection, tenderness Location: of the proximal humerus, over the biceps tendon and over the deltoid bursa and abnormal ROM Details: held in an abnormal fashion, pain wi th active ROM and pain with passive ROM; no swelling, no ecchymosis, no crepitus and no deformity Left upper extremity: normal to inspection and full ROM Assessment & Plan Assessment & Plan (1) Right shoulder strain: Code(s): S46.911A - Strain of unspecified muscle, fascia and tendon at shoulder and upper arm level, right arm, initial encounter Qualifiers: Encounter type: initial encounter Qualified Code(s): S46.911A - Strain of unspecified muscle, fascia and tendon at shoulder and upper arm level, right arm, initial encounter Plan: Ordered Xray shoulder Ordered Tramadol NSAIDs and Acetaminophen for pain relief Orders: Orders XR shoulder RT min 2V Today S46.911A - Strain of unspecified muscle, fascia and tendon at shoulder and upper arm level, right arm, initial encounter Medications: New tramadol 50 mg PO BEDTIME 5 tabs 0RF S46.911A - Strain of unspecified muscle, fascia and tendon at shoulder and upper arm level, right arm, initial encounter Coding Level of Care Code Est Pt Level 4 (07209) Diagnoses Strain of right shoulder, initial encounter S46.911A Encounter type: initial encounter Time Spent (min) 20
== END 2024-10-29 10:00 | disposition home or self-care (01) ==
PROVIDERS: PCP Internal Medicine; Visit Provider Nurse Practitioner Family
DX: S46.911A Strain of unspecified muscle, fascia and tendon at shoulder and upper arm level, right arm, initial encounter (principal)

== ENCOUNTER → 2024-10-29 09:52 | Outpatient (BNV) | payer MEDICARE, SELFPAY | PROVIDERS: PCP Internal Medicine; Visit Provider Radiology Diagnostic Radiology | DX: S46.911A Strain of unspecified muscle, fascia and tendon at shoulder and upper arm level, right arm, initial encounter (principal); M75.31 Calcific tendinitis of right shoulder | CPT/HCPCS: 73030 ==

== ENCOUNTER 2025-01-31 08:05 | Outpatient (REF) | payer MEDICARE, SELFPAY ==
[2025-01-31 11:05] LABS: Alanine Aminotransferase 30 U/L (0-31); Aspartate Amino Transferase 37 U/L (5-31); Cholesterol 178 mg/dL (<200); HDL Cholesterol 74 mg/dL (>40); LDL Cholesterol Calculated 96 mg/dL (<100); Triglycerides 41 mg/dL (<150)
[2025-01-31 11:35] LABS: Free T4 (Free Thyroxine) 1.12 ng/dL (0.71-1.85); Vitamin D 25-OH Total 37.9 ng/mL (>30)
== END 2025-01-31 08:06 | disposition home or self-care (01) ==
LOC: HO.HMGCLDS 08:05
PROVIDERS: PCP Internal Medicine; Visit Provider Internal Medicine
DX: E03.9 Hypothyroidism, unspecified (principal); E78.5 Hyperlipidemia, unspecified; M81.0 Age-related osteoporosis without current pathological fracture
CPT/HCPCS: 36415; 80061; 82306; 84439; 84443; 84450; 84460

== ENCOUNTER 2025-02-05 09:09 | Outpatient (AMB) | payer MEDICARE, SELFPAY ==
--- NOTE | 2025-02-05 09:47 | A.OFFPC_ITS ---
Vital Signs 02/05/25 09:55 Height 5 ft 4 in Weight 142 lb BMI 24.4 BP 128/74 Blood Pressure Location Rt brachial Position Sitting Respiration 22 H Pulse 57 Pulse Source Pulse Oximeter Temp 97.6 F Temp Source Oral Pulse Oximetry (%) 98 Oxygen Delivery Method Room Air Intake Visit Reasons: 4 months f/up Intake Note: Pt is here today for her 4mo. f/u Allergies No Known Allergies Allergy (Verified 02/10/25 19:30) Medication List - Last Reconciled 02/10/25 by Leann Martin MD alendronate 70 mg PO QWEEK cholecalciferol (vitamin D3) 50 mcg PO DAILY fluticasone propionate 50 mcg/actuation sprays intranasal levothyroxine 75 mcg PO DAILY rosuvastatin 5 mg PO Q2D 3 months zolpidem 5 mg PO BEDTIME PRN Tobacco use date assessed: 02/05/25 Fall risk assessment: No Falls in past year Last assessed Fall Risk: 02/05/25 Dental Screening Dental Screen Date: 10/10/24 Did you have a dental visit in the last 12 months?: Yes Did you have a dental problem in the last 6 months where you did not have access to dental care?: No Was dental information given to patient?: Patient has dentist HPI 4 months f/up HPI Details - The patient is a 69-year-old female pr esenting with routine follow-up for chronic conditions including osteopenia, hypothyroidism, and dyslipidemia, along with concerns of allergic rhinitis and voice changes. - She has been taking alendronate for ne erica three years, with no recent bone density scan to assess current bone status. No reported history of fractures or drug side effects such as heartburn. - She experiences symptoms of allergic r hinitis, worse in fall and spring, causing voice changes. Daily Flonase use but inconsistent with systemic antihistamines. - The patient has mildly suppressed TSH levels with free T4 in range, maintaining this on a stable thyroid medication regimen. - Dyslipidemia management shows a rise i n total cholesterol and LDL, though triglycerides remain low, and HDL remarkably improved. - Noted history of low platelet count wi previous hematology input indicating idiopathic thrombocytopenia. - Occasionally uses zolpidem, about once a week, with no adverse sleep-related behaviors. - Considering increasing vitamin D intak e to 2000 units for sustained wellness benefits. - Engages in regular exercise classes, s upporting good cardiovascular fitness. - Limited alcohol consumption reported, described as social drinking. - No current use of tobacco products. - Discussed past stressors including diego e renovation contributing to weight loss, alongside increased activity. [facility] Medical History (Updated 02/05/25 @ 10:29 by Leann Martin MD) Encounter for monitoring alendronate therapy Right shoulder strain Dyslipidemia Hx of idiopathic thrombocytopenic purpura Hypothyroid Hyperlipidemia Surgical History S/P rotator cuff repair Hx of tonsillectomy Family History Sister Mental health disorder Maternal Grandmother Mental health disorder Paternal Grandfather Lung cancer Mother Cardiovascular disease Social History Housing: House Alcohol intake: current Comment: 3-4 per week Patient Tobacco Use Status: Never used Tobacco e-Cigarette/Vaping Use: Never Used service: No Current occupational status: retired Cognitive needs: No Hearing needs: No Vision needs: Yes Questionnaire PHQ-9 Over the last 2 weeks, how often have you been bothered by any of the following problems? Depression Screening Interpretation: Negative Depression Screening Done: Yes Source: Developed by Drs. Twan Martinez, Maeve Carrington, Foster Thomas and colleagues, with an educational kieran from [employer]. Thrive Questionnaire Date Thrive assessed: 10/04/24 I am a: Patient What is your living situation today?: I have a steady place to live Within the past 12 months, did the food you bought not last and you didn't have the money to get more?: Never true Within the past 12 months, did you worry whether your food would run out before you got money to buy more?: Never true Do you have trouble paying for medicines?: No Do you have trouble getting transportation to medical appointments?: No Do you have trouble paying your heating and electricity bill?: No Do you have trouble taking care of your child, family member or friend?: No Do you have trouble with day-to-day activities such as bathing, preparing meals, shopping, managing finances, etc.?: No Are you currently unemployed and looking for a job?: Yes Are you interested in more education?: No Please select the resources that you would like help with: None Currently or been in a relationship where the following occur: No concerns reported THRIVE Score: 0 KAYLYNN-7 AMB Questionnaire KAYLYNN-7 Date KAYLYNN - 7 assessed: 10/10/24 Source: Developed by Drs. Twan Martinez, Maeve Carrington, Foster Thomas and colleagues, with an educational kieran from [employer]. Review of Systems Const Denies headache(s) Eyes Denies change in vision ENT Reports as per HPI, Denies dizziness and Denies headache(s) Card Denies chest pain and Denies dyspnea Resp Denies dyspnea GI Denies diarrhea, Denies nausea and Denies vomiting Reports no additional complaints Musc Reports no additional complaints Neuro Denies dizziness and Denies headache(s) Psych Reports no additional complaints Endo Reports no additional complaints Ray/Lymph Reports no additional complaints Aller/Immun Reports no additional complaints Physical exam (Primary Care) Vital Signs: Last Vital Signs Temp 97.6 F 02/05/25 09:55 Pulse 57 02/05/25 09:55 Resp 22 H 02/05/25 09:55 BP 128/74 02/05/25 09:55 Pulse Ox 98 02/05/25 09:55 Oxygen Delivery Method Room Air 02/05/25 09:55 BMI result Body Mass Index 24.4 Tobacco/Smoking Status: Tobacco use Status Tobacco use date assessed 02/05/25 02/05/25 09:50 Patient Tobacco Use Status Never used Tobacco 02/05/25 09:50 e-Cigarette/Vaping Use Never Used 02/05/25 09:50 Depression Screening Interpretation: Negative Thrive Assessment: Date of Thrive Assessment Date Thrive assessed 10/04/24 02/05/25 09:50 Currently or been in a relationship where the following occur: No concerns reported Const General: comfortable, no acute distress and alert Orientation/consciousness: patient oriented x3 HENMT Ears: external ears normal General nose exam: Normal external nose present Mouth: Normal oral and palatal mucosa present and moist mucous membranes Eyes General: appearance normal, both eyes and all related structures Neck Neck: Yes full ROM, Yes no lymphadenopathy and Yes supple Resp Effort & Inspection: normal respiratory effort and able to speak in complete sentences Auscultation: clear to auscultation bilaterally Cardio Rate: regular rate Rhythm: regular rhythm Heart sounds: S1 normal heart sound present and S2 normal heart sound present GI Palpation (GI): Soft to palpation, nontender and no masses Auscultation: normal bowel sounds General: Yes no CVA tenderness Back/Spine/Pelvis Back: no CVA tenderness and No back tenderness Skin General skin exam: no rashes or lesions noted Neuro General: patient oriented x3, gait normal, tone normal, moves all extremities, Normal light touch and pain sensation and no focal motor deficits Cranial nerves: Yes CN's II-XII intact bilaterally Cognition (Neuro): normal cognition Extrem General: Yes full ROM, Yes no joint enlargement, Yes no clubbing, cyanosis or edema and Yes no calf tenderness Psych Appearance: grossly normal and well kempt Mental Status: mental status grossly normal Speech and movement: Normal speech and movement present Affect: normal affect Thought process: Normal thought process present Results Reviewed Results Reviewed: Name: Dodie Rivers Age/Sex: 69/F : 1955 Unit#: [id number] Attend Dr: Leann Martin MD Re01/31/25 Status: DEP REF [facility] Disch: SPEC : [id number] ANA ROSA: 01/31/25 STATUS: COMP REQ : [id number] RECD: 01/31/[address]: Leann Martin MD COMP: 01/31/255 ENTERED: 01/31/[address] [facility] [address]: ORDERED: AST, ALT, Lipid Panel, Vitamin D 25-OH, Free T4, TSH Test Result Flag Reference AST (GOT) 37 H 5-31 U/L ALT (GPT) 30 0-31 U/L Triglyceride 41 <150 mg/dL Desirable Triglyceride: less than 150 mg/dL Borderline High Triglyceride 150-199 mg/dL High Triglyceride: 200-499 mg/dL Very High Triglyceride: greater than or equal to 5OO mg/dL Cholesterol 178 <200 mg/dL Desirable Cholesterol: less than 200 mg/dL Borderline High Cholesterol: 200-239 mg/dL High Cholesterol: greater than 239 mg/dL LDL Calculated 96 <100 mg/dL Desirable LDL: less than 100 mg/dL Near Optimal/Above Optimal LDL: 110-129 mg/dL Borderline High LDL: 130-159 mg/dL High LDL: 160-189 mg/dL Very High LDL: greater than or equal to 190 mg/dL HDL 74 >40 mg/dL Desirable HDL: greater than 40 mg/dL Note: This HDL assay may give artificially low results in patients with liver disease. Vitamin D 25-OH 37.9 >30 ng/mL Health Based Reference Values* < 20 ng/mL Deficient 20-30 ng/mL Insufficient > 30 ng/mL Sufficient *Elton WILLAMS. N Engl J Med. 2007;[id number] There is no well-established upper level of normal vitamin D levels. Some laboratories use 50 ng/mL as an upper limit of normal. However, toxicity is patient-dependent and may occur at any level. Careful correlation with the patient's presentation is necessary and, if there is concern for vitamin D toxicity, treatment should be considered irrespective of the serum level. Care must be taken in interpreting Vitamin D results from different laboratories and methodologies. Published data demonstrated that results from patients undergoing hemodialysis may show a negative bias when tested with various automated 25-OH vitamin D assays when compared to LC-MS/MS. When testing samples from patients whose predominant form of Vitamin D is Vitamin D2, such as patients receiving Vitamin D2 supplementation, results that are subtherapeutic should be confirmed with another method such as LC-MS/MS. Free T4 1.12 0.71-1.85 ng/dL TSH 3rd Gen. 0.30 L 0.32-4.0 uIU/mL TSH 3rd Generation ([facility]) Coding Level of Care Code Est Pt Level 4 (44743) Complex EM visit Add On G2211 Diagnoses Osteoporosis, unspecified osteoporosis type, unspecified pathological fracture presence M81.0 Osteoporosis type: unspecified Presence of current pathological fracture: unspecified Encounter for monitoring alendronate therapy Z51.81; Z79.83 Acquired hypothyroidism E03.9 Hypothyroidism type: acquired Primary insomnia F51.01 Insomnia type: primary Hx of idiopathic thrombocytopenic purpura Z86.2 Dyslipidemia E78.5 Assessment & Plan Assessment & Plan (1) Osteoporosis: Comment: Patient is reportedly osteoporotic. She takes a alendronate 70mg Qweek. 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 with good effect. X1 per week. Patient has been educated on the side effects of the medication. Has taken medication previously with good effect. Code(s): G47.00 - Insomnia, unspecified Category: Medical Qualifiers: Insomnia type: primary Qualified Code(s): F51.01 - Primary insomnia Plan: Refill sent for zolpidem (5) Hx of idiopathic thrombocytopenic purpura: Code(s): Z86.2 - Personal history of diseases of the blood and blood-forming organs and certain disorders involving the immune mechanism Category: Medical Plan: Will continue to monitor CBC and platelet (6) Dyslipidemia: Code(s): E78.5 - Hyperlipidemia, unspecified Category: Medical Plan: Fasting lipids are within normal limits, continued on rosuvastatin 5 mg taken 1 tablet every other day recheck levels again in six-month Orders: Orders Alanine Aminotransferase 07/13/25 E03.9 - Hypothyroidism, unspecified, E78.5 - Hyperlipidemia, unspecified, Z86.2 - Personal history of diseases of the blood and blood-forming organs and certain disorders involving the immune mechanism Thyroid Stimulating Hormone 07/13/25 E03.9 - Hypothyroidism, unspecified, E78.5 - Hyperlipidemia, unspecified, Z86.2 - Personal history of diseases of the blood and blood-forming organs and certain disorders involving the immune mechanism Complete Blood Count Auto Diff 07/13/25 Z86.2 - Personal history of diseases of the blood and blood-forming organs and certain disorders involving the immune mechanism XR DEXA axial skeleton 02/05/25 M81.0 - Age-related osteoporosis without current pathological fracture, Z51.81 - Encounter for therapeutic drug level monitoring, Z79.83 - [facility] (current) use of bisphosphonates Lipid Panel 07/13/25 E03.9 - Hypothyroidism, unspecified, E78.5 - Hyperlipidemia, unspecified, Z86.2 - Personal history of diseases of the blood and blood-forming organs and certain disorders involving the immune mechanism Vitamin D 25-OH Total 07/13/25 E03.9 - Hypothyroidism, unspecified, E78.5 - Hyperlipidemia, unspecified, Z86.2 - Personal history of diseases of the blood and blood-forming organs and certain disorders involving the immune mechanism Basic Metabolic Panel Fasting 07/13/25 E03.9 - Hypothyroidism, unspecified, E78.5 - Hyperlipidemia, unspecified, Z86.2 - Personal history of diseases of the blood and blood-forming organs and certain disorders involving the immune mechanism Aspartate Amino Transferase 07/13/25 E03.9 - Hypothyroidism, unspecified, E78.5 - Hyperlipidemia, unspecified, Z86.2 - Personal history of diseases of the blood and blood-forming organs and certain disorders involving the immune mechanism Free T4 (Free Thyroxine) 07/13/25 E03.9 - Hypothyroidism, unspecified, E78.5 - Hyperlipidemia, unspecified, Z86.2 - Personal history of diseases of the blood and blood-forming organs and certain disorders involving the immune mechanism Medications: Refilled zolpidem 5 mg PO BEDTIME PRN 30 tabs 0RF insomnia
[2025-02-05 09:55] VITALS: BP 128/74; PULSE 57; RESP 22; TEMP 36.4; O2SAT 98; BMI 24.4
== END 2025-02-05 10:48 | disposition home or self-care (01) ==
LOC: HO.HMCC 09:10
PROVIDERS: PCP Internal Medicine; Visit Provider Internal Medicine
DX: M81.0 Age-related osteoporosis without current pathological fracture (principal); Z51.81 Encounter for therapeutic drug level monitoring; Z79.83 Long term (current) use of bisphosphonates; E03.9 Hypothyroidism, unspecified; F51.01 Primary insomnia; Z86.2 Personal history of diseases of the blood and blood-forming organs and certain disorders involving the immune mechanism; E78.5 Hyperlipidemia, unspecified

== ENCOUNTER → 2025-02-05 09:09 | Outpatient (BNVA) | payer MEDICARE, SELFPAY | PROVIDERS: PCP Internal Medicine; Visit Provider Internal Medicine | DX: M81.0 Age-related osteoporosis without current pathological fracture (principal); M85.80 Other specified disorders of bone density and structure, unspecified site; E03.9 Hypothyroidism, unspecified; E78.5 Hyperlipidemia, unspecified; J30.9 Allergic rhinitis, unspecified; R49.9 Unspecified voice and resonance disorder; F51.01 Primary insomnia; Z51.81 Encounter for therapeutic drug level monitoring; Z86.2 Personal history of diseases of the blood and blood-forming organs and certain disorders involving the immune mechanism; Z79.83 Long term (current) use of bisphosphonates | CPT/HCPCS: 99212 ==

== ENCOUNTER 2025-05-06 11:18 | Outpatient (AMB) | payer MEDICARE, SELFPAY ==
[2025-05-06 11:29] VITALS: BP 116/62; PULSE 71; TEMP 36.9; O2SAT 97; BMI 23.7
--- NOTE | 2025-05-06 11:29 | AM.OFFWIN_ITS ---
Intake Vital Signs 05/06/25 11:29 Height 5 ft 4 in Weight 138 lb BMI 23.7 BP 116/62 Blood Pressure Location Rt brachial Position Sitting Pulse 71 Pulse Source Pulse Oximeter Temp 98.5 F Temp Source Oral Pulse Oximetry (%) 97 Oxygen Delivery Method Room Air Intake Visit Reasons: ep possible infection in nose Intake Note: bilateral nostrils recurrently irritated with open wounds, scabbing, sensitivity for over 6 months Patient Tobacco Use Status: Never used Tobacco Allergies No Known Allergies Allergy (Verified 05/06/25 11:32) Do you need a note to return to daycare/school/sports/work: No HPI HPI Comments History of Present Illness Details 69 y/o Female patient who [facility] to [facility] with c/o Nasal irritation and mild pain for 8 months. Pt reports picking her Nose frequently because feels like there is something inside Nose. Reports Crusting around the B/L Nostrils. Reports runny nose but denies other URI symptoms. [facility] Medical History (Updated 05/06/25 @ 12:13 by Felicitas Ashton NP) Allergic rhinitis Encounter for monitoring alendronate therapy Right shoulder strain Dyslipidemia Hx of idiopathic thrombocytopenic purpura Hypothyroid Hyperlipidemia Surgical History S/P rotator cuff repair Hx of tonsillectomy Family History Sister Mental health disorder Maternal Grandmother Mental health disorder Paternal Grandfather Lung cancer Mother Cardiovascular disease Social History Housing: House Alcohol intake: current Comment: 3-4 per week Patient Tobacco Use Status: Never used Tobacco e-Cigarette/Vaping Use: Never Used service: No Current occupational status: retired Cognitive needs: No Hearing needs: No Vision needs: Yes Review of Systems Const All systems reviewed & are unremarkable except as noted in HPI and below Physical Exam Vital Signs: Last Vital Signs Temp 98.5 F 05/06/25 11:29 Pulse 71 05/06/25 11:29 BP 116/62 05/06/25 11:29 Pulse Ox 97 05/06/25 11:29 Oxygen Delivery Method Room Air 05/06/25 11:29 BMI result Body Mass Index 23.7 Const General: no acute distress Nutritional Appearance: well nourished Orientation/consciousness: patient oriented x3 HEENT Head: Yes normocephalic Ears: external ears normal and TM abnormal obstructed by cerumen General nose exam: Abnormal mucous membranes and turbinates present boggy bilateral and erythematous bilateral Face and sinus: Yes sinuses nontender Mouth: moist mucous membranes Throat: Yes uvula midline Neuro General: patient oriented x3, gait normal and moves all extremities Psych Speech and movement: Normal speech and movement present Assessment & Plan Assessment & Plan (1) Allergic rhinitis: Code(s): J30.9 - Allergic rhinitis, unspecified Qualifiers: Allergic rhinitis seasonality: seasonal Allergic rhinitis trigger: unspecified Qualified Code(s): J30.2 - Other seasonal allergic rhinitis Plan: Ordered Claritin BID Stop using Flonase for now Continue using Normal saline spray PRN F/U with PCP. Medications: New loratadine (Claritin) 10 mg PO DAILY 30 tabs 0RF J30.2 - Other seasonal aller gic rhinitis Coding Level of Care Code Est Pt Level 4 (30180) Diagnoses Seasonal allergic rhinitis, unspecified trigger J30.2 Allergic rhinitis seasonality: seasonal Allergic rhinitis trigger: unspecified Time Spent (min) 20
== END 2025-05-06 12:40 | disposition home or self-care (01) ==
PROVIDERS: PCP Internal Medicine; Visit Provider Nurse Practitioner Family
DX: J30.2 Other seasonal allergic rhinitis (principal)

== ENCOUNTER → 2025-05-06 11:18 | Outpatient (BNVA) | payer MEDICARE, SELFPAY | PROVIDERS: PCP Internal Medicine; Visit Provider Nurse Practitioner Family | DX: J30.2 Other seasonal allergic rhinitis (principal) | CPT/HCPCS: 99212 ==

== ENCOUNTER 2025-07-17 08:17 | Outpatient (REF) | payer MEDICARE, SELFPAY | END 2025-07-17 08:18 | disposition home or self-care (01) | LOC: HO.MAMMO 08:17 | PROVIDERS: PCP Internal Medicine; Visit Provider Internal Medicine | DX: Z12.31 Encounter for screening mammogram for malignant neoplasm of breast (principal) | CPT/HCPCS: 77063; 77067 ==

== ENCOUNTER → 2025-07-17 08:30 | Outpatient (BNV) | payer MEDICARE, SELFPAY | PROVIDERS: PCP Internal Medicine; Visit Provider Internal Medicine | DX: Z12.31 Encounter for screening mammogram for malignant neoplasm of breast (principal) | CPT/HCPCS: 77063; 77067 ==

== ENCOUNTER 2025-08-28 07:27 | Outpatient (REF) | payer MEDICARE, SELFPAY ==
[2025-08-28 10:42] LABS: MANUAL DIFF FLAG NO
[2025-08-28 10:52] LABS: Hematocrit 41.8 % (37.0-47.0); Hemoglobin 13.8 g/dl (12.0-16.0); Imm Gran Abs Auto 0.01 X10*3/uL (0.00-0.03); Imm Gran Pct Auto 0.2 % (0.0-0.4); Lymphocytes Absolute Auto 1.4 X10*3/uL (1.2-4.9); Mean Corpuscular HGB Conc 33.0 g/dl (31.0-35.0); Mean Corpuscular Hemoglobin 30.9 pg (27.0-33.0); Mean Corpuscular Volume 93.5 fL (80.0-98.0); NRBC Abs Auto 0.000 X10*3/uL (0.0-0.012); NRBC Pct Auto 0.0 /100WBC (0.0-0.2); Platelet Count 155 X10*3/uL (160-400); Red Blood Count 4.47 X10*6/uL (4.20-5.50); White Blood Count 5.4 X10*3/uL (4.8-10.8)
[2025-08-28 11:33] LABS: Alanine Aminotransferase 26 U/L (0-31); Anion Gap 11 (12-20); Aspartate Amino Transferase 31 U/L (5-31); Blood Urea Nitrogen 17 mg/dL (9-16); Calcium 9.4 mg/dL (8.4-10.2); Carbon Dioxide 25 mmol/L (22-29); Chloride 110 mmol/L (96-108); Cholesterol 181 mg/dL (<200); Estimated Glomerular Filt Rate > 60; HDL Cholesterol 78 mg/dL (>40); Potassium 4.4 mmol/L (3.3-5.1); Sodium 142 mmol/L (135-145); Triglycerides 32 mg/dL (<150)
[2025-08-28 11:35] LABS: Free T4 (Free Thyroxine) 1.15 ng/dL (0.71-1.85); Thyroid Stimulating Hormone 1.13 uIU/mL (0.32-4.0)
== END 2025-08-28 07:28 ==
LOC: HO.HMGCLDS 07:27
PROVIDERS: PCP Internal Medicine; Visit Provider Internal Medicine
DX: Z13.21 Encounter for screening for nutritional disorder (principal); E78.5 Hyperlipidemia, unspecified; E03.9 Hypothyroidism, unspecified; Z86.2 Personal history of diseases of the blood and blood-forming organs and certain disorders involving the immune mechanism
CPT/HCPCS: 36415; 80048; 80061; 82306; 84439; 84443; 84450; 84460; 85025

== ENCOUNTER 2025-09-02 08:49 | Outpatient (AMB) | payer MEDICARE, SELFPAY ==
--- NOTE | 2025-09-02 09:02 | A.OFFPC_ITS ---
Vital Signs 09/02/25 09:11 Height 5 ft 4 in Weight 136 lb BMI 23.3 BP 118/76 Blood Pressure Location Rt brachial Position Sitting Respiration 16 Pulse 61 Pulse Source Pulse Oximeter Temp 97.6 F Temp Source Oral Pulse Oximetry (%) 98 Oxygen Delivery Method Room Air Intake Visit Reasons: Annual PE Intake Note: Pt is here today for her PE: last mammogram 07/17/25, bone density scan 08/30/23, colonoscopy 06/21/25 Lay Brother Required: No Allergies No Known Allergies Allergy (Verified 09/02/25 09:35) Medication List - Last Reconciled 09/02/25 by Leann Martin MD alendronate 70 mg PO QWEEK cholecalciferol (vitamin D3) 50 mcg PO DAILY fluticasone propionate 50 mcg/actuation 1 spray intranasal BID PRN levothyroxine 75 mcg PO DAILY loratadine (Claritin) 10 mg PO DAILY rosuvastatin 5 mg PO Q2D 3 months sodium chloride 0.65% (Saline Nasal Mist) 1 spray intranasal BID PRN zolpidem 5 mg PO BEDTIME PRN Tobacco use date assessed: 09/02/25 Fall risk assessment: No Falls in past year Last assessed Fall Risk: 09/02/25 Dental Screening Dental Screen Date: 09/02/25 Did you have a dental visit in the last 12 months?: Yes Did you have a dental problem in the last 6 months where you did not have access to dental care?: No Was dental information given to patient?: Patient has dentist HPI Annual PE HPI Details The patient is a 69 year old female presenting for her physical exam. The patient has a history of osteoporosis and started alendronate at the [facility] of 2023. She expresses a desire to discontinue the medication but reports no side effects such as heartburn. Her mother is on Prolia, and the patient has concerns about bone health medications affecting teeth. Her upcoming bone density scan, scheduled for September 16, was postponed due to equipment issues. She engages in weight-bearing exercises twice a week and takes calcium and vitamin D supplements. Has hypothyroidism currently on levothyroxine 75 mcg daily, and has dyslipidemia currently on rosuvastatin takes 5 mg every other day. She has a history of chronic thrombocytopenia, with platelet counts persistently on the low side, though her most recent lab showed an increase from 105 to 155. A prior hematology workup did not determine a cause. The patient reports she bruises easily and that bleeding takes a long time to stop, but she denies any heavy bleeding or nosebleeds. Ophthalmologic history is significant for cataract removal in 2020 and a history of pre-glaucoma. She is being monitored for a potential retinal tear. [facility] Medical History (Updated 09/02/25 @ 09:36 by Leann Martin MD) Allergic rhinitis Encounter for monitoring alendronate therapy Right shoulder strain Dyslipidemia Hx of idiopathic thrombocytopenic purpura Hypothyroid Hyperlipidemia Surgical History S/P rotator cuff repair Hx of tonsillectomy Family History Sister Mental health disorder Maternal Grandmother Mental health disorder Paternal Grandfather Lung cancer Mother Cardiovascular disease Social History Housing: House Alcohol intake: current Comment: 3-4 per week Patient Tobacco Use Status: Never used Tobacco e-Cigarette/Vaping Use: Never Used service: No Current occupational status: retired Cognitive needs: No Hearing needs: No Vision needs: Yes Questionnaire PHQ-9 Over the last 2 weeks, how often have you been bothered by any of the following problems? 1. Little interest or pleasure in doing things: not at all 2. Feeling down, depressed, or hopeless: not at all 3. Trouble falling or staying asleep, or sleeping too much: not at all 4. Feeling tired or having little energy: not at all 5. Poor appetite or overeating: not at all 6. Feeling bad about yourself - or that you are a failure or have let yourself or your family down: not at all 7. Trouble concentrating on things, such as reading the newspaper or watching t elevision: not at all 8. Moving or speaking so slowly that other people could have noticed. Or the opposite - being so fidgety or restless that you have been moving around a lot more than usual: not at all 9. Thoughts that you would be better off or of hurting yourself in some way: not at all Total score: 0 Depression Screening Interpretation: Negative Depression Screening Done: Yes Source: Developed by Drs. Twan Martinez, Maeve Carrington, Foster Thomas and colleagues, with an educational kieran from [employer]. Thrive Questionnaire Date Thrive assessed: 10/04/24 I am a: Patient What is your living situation today?: I have a steady place to live Within the past 12 months, did the food you bought not last and you didn't have the money to get more?: Never true Within the past 12 months, did you worry whether your food would run out before you got money to buy more?: Never true Do you have trouble paying for medicines?: No Do you have trouble getting transportation to medical appointments?: No Do you have trouble paying your heating and electricity bill?: No Do you have trouble taking care of your child, family member or friend?: No Do you have trouble with day-to-day activities such as bathing, preparing meals, shopping, managing finances, etc.?: No Are you currently unemployed and looking for a job?: Yes Are you interested in more education?: No Please select the resources that you would like help with: None Currently or been in a relationship where the following occur: No concerns reported THRIVE Score: 0 AUDIT C Alcohol Use Questionnaire (AUDIT-C) 1. How often do you have a drink containing alcohol?: 2-4 times a month 2. How many drinks containing alcohol do you have on a typical day when you are drinking?: 1 or 2 3. How often do you have six or more drinks on one occasion?: Never Total Score: 2 KAYLYNN-7 AMB Questionnaire KAYLYNN-7 Date KAYLYNN - 7 assessed: 10/10/24 Feeling nervous, anxious, or on edge: 0 = Not at all Not being able to stop or control worryin = Not at all Worrying too much about different things: 0 = Not at all Trouble relaxin = Not at all Being so restless that it is hard to sit still: 0 = Not at all Becoming easily annoyed or irritable: 0 = Not at all Feeling afraid as if something awful might happen: 0 = Not at all Total KAYLYNN-7 score (0-4 normal; 5-9 mild; 10-14 moderate; 15-21 severe): 0 Source: Developed by Maeve Nolasco B.W. Zeb, Foster Thomas and colleagues, with an educational kieran from [employer]. Review of Systems Const Denies headache(s) Eyes Details: sees DR Hart at [facility], s/p cataract sx Denies change in vision ENT Details: Dental prophylaxis every 6 months Reports as per HPI, Denies dizziness and Denies headache(s) Card Denies chest pain and Denies dyspnea Resp Denies dyspnea GI Denies diarrhea, Denies nausea and Denies vomiting Reports no additional complaints Musc Reports no additional complaints Skin/Breast Denies breast pain, Denies breast mass and Denies rash Neuro Denies dizziness and Denies headache(s) Psych Reports no additional complaints Endo Reports no additional complaints Ray/Lymph Reports no additional complaints Aller/Immun Reports no additional complaints Physical exam (Primary Care) Vital Signs: Last Vital Signs Temp 97.6 F 09/02/25 09:11 Pulse 61 09/02/25 09:11 Resp 16 09/02/25 09:11 BP 118/76 09/02/25 09:11 Pulse Ox 98 09/02/25 09:11 Oxygen Delivery Method Room Air 09/02/25 09:11 BMI result Body Mass Index 23.3 Tobacco/Smoking Status: Tobacco use Status Tobacco use date assessed 09/02/25 09/02/25 09:05 Patient Tobacco Use Status Never used Tobacco 09/02/25 09:05 e-Cigarette/Vaping Use Never Used 09/02/25 09:05 PHQ-9: PHQ-9 Score PHQ-9: Total score 0 09/02/25 09:51 Depression Screening Interpretation: Negative Thrive Assessment: Date of Thrive Assessment Date Thrive assessed 10/04/24 09/02/25 09:05 Currently or been in a relationship where the following occur: No concerns reported Const General: comfortable, no acute distress and alert Orientation/consciousness: patient oriented x3 HENMT Ears: external ears normal General nose exam: Normal external nose present Mouth: Normal oral and palatal mucosa present and moist mucous membranes Eyes General: appearance normal, both eyes and all related structures Neck Neck: Yes full ROM, Yes no lymphadenopathy and Yes supple Resp Effort & Inspection: normal respiratory effort and able to speak in complete sentences Auscultation: clear to auscultation bilaterally Cardio Rate: regular rate Rhythm: regular rhythm Heart sounds: S1 normal heart sound present and S2 normal heart sound present GI Palpation (GI): Soft to palpation, nontender and no masses Auscultation: normal bowel sounds General: Yes no CVA tenderness Back/Spine/Pelvis Back: no CVA tenderness and No back tenderness Skin General skin exam: no rashes or lesions noted Neuro General: patient oriented x3, gait normal, tone normal, moves all extremities, Normal light touch and pain sensation and no focal motor deficits Cranial nerves: Yes CN's II-XII intact bilaterally Cognition (Neuro): normal cognition Extrem General: Yes full ROM, Yes no joint enlargement, Yes no clubbing, cyanosis or e luis and Yes no calf tenderness Psych Appearance: grossly normal and well kempt Mental Status: mental status grossly normal Speech and movement: Normal speech and movement present Affect: normal affect Thought process: Normal thought process present Results Reviewed Results Reviewed: Name: Dodie Rivers Age/Sex: 69/F : 1955 Unit#: [id number] Attend Dr: Leann Martin MD Re08/28/25 Status: DEP REF [facility] Disch: SPEC : [id number] ANA ROSA: 08/28/25 STATUS: COMP REQ : [id number] RECD: 08/28/[address]: Leann Martin MD COMP: 08/28/25 ENTERED: 08/28/[address]: ORDERED: Met Prof Fast, AST, ALT, Lipid Panel, Vitamin D 25-OH, Free T4, TSH Test Result Flag Reference Sodium 142 135-145 mmol/L Potassium 4.4 3.3-5.1 mmol/L CL 110 H 96-108 mmol/L CO2 25 22-29 mmol/L Gap 11 L 12-20 BUN 17 H 9-16 mg/dL Creat 0.83 0.5-1.4 mg/dL eGFR > 60 Chronic Kidney Disease: Estimated GFR < 60 mL/min/1.73m2 Severe Kidney Disease: Estimated GFR < 15 mL/min/1.73m2 FBS 94 60-99 mg/dL CA 9.4 8.4-10.2 mg/dL AST (GOT) 31 5-31 U/L ALT (GPT) 26 0-31 U/L Triglyceride 32 <150 mg/dL Desirable Triglyceride: less than 150 mg/dL Borderline High Triglyceride 150-199 mg/dL High Triglyceride: 200-499 mg/dL Very High Triglyceride: greater than or equal to 5OO mg/dL Cholesterol 181 <200 mg/dL Desirable Cholesterol: less than 200 mg/dL Borderline High Cholesterol: 200-239 mg/dL High Cholesterol: greater than 239 mg/dL LDL Calculated 97 <100 mg/dL Desirable LDL: less than 100 mg/dL Near Optimal/Above Optimal LDL: 110-129 mg/dL Borderline High LDL: 130-159 mg/dL High LDL: 160-189 mg/dL Very High LDL: greater than or equal to 190 mg/dL HDL 78 >40 mg/dL Desirable HDL: greater than 40 mg/dL Note: This HDL assay may give artificially low results in patients with liver disease. Vitamin D 25-OH 59.8 >30 ng/mL Health Based Reference Values* < 20 ng/mL Deficient 20-30 ng/mL Insufficient > 30 ng/mL Sufficient *Elton WILLAMS. N Engl J Med. 2007;[id number] There is no well-established upper level of normal vitamin D levels. Some laboratories use 50 ng/mL as an upper limit of normal. However, toxicity is patient-dependent and may occur at any level. Careful correlation with the patient's presentation is necessary and, if there is concern for vitamin D toxicity, treatment should be considered irrespective of the serum level. Care must be taken in interpreting Vitamin D results from different laboratories and methodologies. Published data demonstrated that results from patients undergoing hemodialysis may show a negative bias when tested with various automated 25-OH vitamin D assays when compared to LC-MS/MS. When testing samples from patients whose predominant form of Vitamin D is Vitamin D2, such as patients receiving Vitamin D2 supplementation, results that are subtherapeutic should be confirmed with another method such as LC-MS/MS. Free T4 1.15 0.71-1.85 ng/dL TSH 3rd Gen. 1.13 0.32-4.0 uIU/mL TSH 3rd Generation ([facility]) Coding Level of Care Code Est Pt Prev Care >65y(95172) Diagnoses Annual visit for general adult medical examination with abnormal findings Z00.01 Acquired hypothyroidism E03.9 Hypothyroidism type: acquired Dyslipidemia E78.5 Osteoporosis, unspecified osteoporosis type, unspecified pathological fracture presence M81.0 Osteoporosis type: unspecified Presence of current pathological fracture: unspecified Primary insomnia F51.01 Insomnia type: primary Assessment & Plan Assessment & Plan (1) Annual visit for general adult medical examination with abnormal findings: Code(s): Z00.01 - Encounter for general adult medical examination with abnormal findings Plan: Latest fasting lab results reviewed with patient.. Recommended dental visit every 6 months and regular eye exams, at least every 2 years. Take adequate calcium in diet and vitamin-D 3 at 2000 IU per cap once a day, in addition to weight-bearing exercises to help maintain good muscle tone and weight control. Repeat bone density due again next year, already scheduled Instructed to do self-breast exam, and continue to get yearly mammogram. Up-to-date with her colon cancer screening, Cologuard done 06/21/2025 showing negative findings, repeat screening due again in 2027. Up-to-date with her advanced directives (2) Hypothyroid: Code(s): E03.9 - Hypothyroidism, unspecified Category: Medical Qualifiers: Hypothyroidism type: acquired Qualified Code(s): E03.9 - Hypothyroidism, unspecified Plan: Latest thyroid levels are within normal limits, continued on current dose of levothyroxine 75 mcg daily (3) Dyslipidemia: Code(s): E78.5 - Hyperlipidemia, unspecified Category: Medical Plan: Latest fasting lipids are within normal limits. Continued on rosuvastatin 5 mg taken every other day. (4) Osteoporosis: Comment: Patient is reportedly osteoporotic. She takes a alendronate 70mg Qweek. Code(s): M81.0 - Age-related osteoporosis without current pathological fracture Category: Medical Qualifiers: Osteoporosis type: unspecified Presence of current pathological fracture: unspecified Qualified Code(s): M81.0 - Age-related osteoporosis without current pathological fracture Plan: Has an appointment already scheduled for her repeat bone density screening in September 2025, reinforced importance of doing regular weight-bearing exercise, taking adequate calcium from dietary sources and vitamin-D 3 supplements at least 2000 units daily (5) Insomnia: Comment: She is utilizing zolpidem p.r.n. with good effect. X1 per week. Patient has been educated on the side effects of the medication. Has taken medication previously with good effect. Code(s): G47.00 - Insomnia, unspecified Category: Medical Qualifiers: Insomnia type: primary Qualified Code(s): F51.01 - Primary insomnia Plan: Refill sent for zolpidem 5 mg per tablet taken 1 tablet at night as needed for insomnia Orders: Orders Lipid Panel 12/14/25 E03.9 - Hypothyroidism, unspecified, E78.5 - Hyperlipidemia, unspecified Basic Metabolic Panel Fasting 12/14/25 E03.9 - Hypothyroidism, unspecified, E78.5 - Hyperlipidemia, unspecified Thyroid Stimulating Hormone 12/14/25 E03.9 - Hypothyroidism, unspecified, E78.5 - Hyperlipidemia, unspecified Vitamin D 25-OH Total 12/14/25 M81.0 - Age-related osteoporosis without current pathological fracture Alanine Aminotransferase 12/14/25 E03.9 - Hypothyroidism, unspecified, E78.5 - Hyperlipidemia, unspecified Aspartate Amino Transferase 12/14/25 E03.9 - Hypothyroidism, unspecified, E78.5 - Hyperlipidemia, unspecified Free T4 (Free Thyroxine) 12/14/25 E03.9 - Hypothyroidism, unspecified, E78.5 - Hyperlipidemia, unspecified Medications: Refilled zolpidem 5 mg PO BEDTIME PRN 30 tabs 0RF insomnia
[2025-09-02 09:11] VITALS: BP 118/76; PULSE 61; RESP 16; TEMP 36.4; O2SAT 98; BMI 23.3
== END 2025-09-02 10:14 | disposition home or self-care (01) ==
LOC: HO.HMCC 08:50
PROVIDERS: PCP Internal Medicine; Visit Provider Internal Medicine
DX: Z00.01 Encounter for general adult medical examination with abnormal findings (principal); E03.9 Hypothyroidism, unspecified; E78.5 Hyperlipidemia, unspecified; M81.0 Age-related osteoporosis without current pathological fracture; F51.01 Primary insomnia

== ENCOUNTER → 2025-09-02 08:49 | Outpatient (BNVA) | payer MEDICARE, SELFPAY | PROVIDERS: PCP Internal Medicine; Visit Provider Internal Medicine | DX: Z00.01 Encounter for general adult medical examination with abnormal findings (principal); E03.9 Hypothyroidism, unspecified; E78.5 Hyperlipidemia, unspecified; M81.0 Age-related osteoporosis without current pathological fracture; F51.01 Primary insomnia; Z13.31 Encounter for screening for depression | CPT/HCPCS: 96127; 99397 ==